=== PATIENT | female | born 1955 | race Caucasian/White ===

== ENCOUNTER 2022-03-18 15:46 | Outpatient (CLI) | payer MEDICARE, OTHER, SELFPAY ==
--- OUTSIDE RECORDS SUMMARY | 2022-03-18 15:50 | XMS_ITS | Encounter Summary ---
:1955 Author Organization [facility] Address [address] [place] [address]. [place] [address] Care Team Providers Name Role Phone Cleve Mrogan MD Unavailable Reason for Visit Reason Comments [facility] Encounter Details Date Type Department Care Team Description 10/29/2005 Office Visit [facility] in [facility] w [facility] [address] [place] [phone] Social History Tobacco Use Types Packs/Day Years Used Date Never Assessed Sex Assigned at Date Recorded Not on file documented as of this encounter Plan of Treatment Not on filedocumented as of this encounter Visit Diagnoses Not on filedocumented in this encounter Care Teams Valve Inspector Relationship Specialty Start Date End Date Cleve Morgan MD PCP - Ophthalmology 10/29/05 [facility] [address] [place] [address] documented as of this encounter
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
--- OUTSIDE RECORDS SUMMARY | 2022-03-18 15:50 | XMS_ITS | Encounter Summary ---
:1955 Author Organization [place] Address [address] [facility] [place] [address] Care Team Providers Name Role Phone Frw, None Unavailable Unavailable Lilian Baez MD Primary Care Provider Reason for Visit Auth/Cert Specialty Diagnoses / Procedures Referred By Contact Refer red To Contact Surgery Diagnoses Prolapse of vaginal vault after hysterectomy Rectocele Stress incontinence, female Prolapse of vaginal vault after hysterectomy [N99.3] Rectocele [N81.6] Stress incontinence, female [N39.3] Rh Periop Services Procedures HC REPR VAGINAL PROLAPSE,SACROSP LIG HC SLING OPERATION FOR STRESS INCONTINENCE C LAPAROSCOPY, SURGICAL; SLING OPERATION FOR STRESS INCONTINENCE HC CYSTOURETHROSCOPY C LAPAROSCOPY, SURGICAL, COLPOPEXY [address] C COLPOPEXY, VAGINAL; INTRA- PERITONEAL APPROACH (UTEROSACRAL, LEVATOR MYORRHAPHY) Sacrospinus ligament alignment, posterior repair, perineorrhaphy (General or Spinal) possible midurethral sling, cystoscopy (General or Spinal) [place] [address] Phone: Fax: Referral ID Status Reason Start Date Expiration Date Visits Requ ested Visits Authorized [id number] 1 1 Encounter Details Date Type Department Care Team Description 08/25/2019 Surgery [facility] Guillermina Wagner MD Sacrospinus ligament [facility] susupension posterior [address] [facility] repair, [place] [address] [facility] perineorrhaphy, [address] [place] [address] cystoscopy [phone] (Wo rk) Surgery Details Date/Time Status Location OR Service Patient Case Class Case Tr auma Class Type Case? 08/25/19 11:15 Posted [facility] OR OR 09 Gynecology Same Day Outpatient in AM Surgery Bed Panel 1 Procedure LRB Anes Op Region Wound Class Commen ts Sacrospinus ligament susupension N/A General Vagina II- Clean Contaminated posterior repair, perineorrhaphy, cystoscopy Surgeon Surgeon Role Service Panel Guillermina Wagner MD Primary Gynecology 1 Special Needs Cady Cristian to [id number] 1in, 262 lbs per H&P documented in this encounter Social History Tobacco Use Types Packs/Day Years Used Date Former Smoker Smokeless Tobacco: Never Used Comments: quit 30 years ago Alcohol Use Standard Drinks/Week Comments Yes 0 (1 standard drink = 0.6 oz pure alcoho l) 1 glass wine 2/month Alcohol Habits Answer Date Recorded How often do you have a drink containing alcohol? Not asked How many drinks containing alcohol do you have on Not asked a typical day when you are drinking? How often do you have six or more drinks on one Not asked occasion? Comment: 1 glass wine 2/month 08/18/2019 Sex Assigned at Date Recorded Not on file documented as of this encounter Last Filed Vital Signs Vital Sign Reading Time Taken Comments Blood Pressure 125/66 08/25/2019 10:33 AM [facility] Pulse - - Temperature 36.7 ??C (98 ??F) 08/25/2019 10:17 AM [facility] Respiratory Rate 18 08/25/2019 10:17 AM [facility] Oxygen Saturation 99% 08/25/2019 10:17 AM [facility] Inhaled Oxygen Concentration - - Weight 121.6 kg (268 lb) 08/25/2019 10:17 AM [facility] Height 154.9 cm (5' 1) 08/25/2019 10:17 AM [facility] Body Mass Index 50.64 08/25/2019 10:17 AM [facility] documented in this encounter Medications at Time of Discharge Medication Sig Dispensed Refills Start Date End Date acetaminophen (TYLENOL) Take 2 tablets (650 30 tablet 0 11/2019 325 MG tabletIndications: mg) by mouth every 6 Rectocele hours as needed for mild pain acetaminophen (TYLENOL) Take 2 tablets (650 100 tablet 0 10/2019 325 MG tabletIndications: mg) by mouth every 6 Rectocele, Enterocele, hours as needed Vaginal vault prolapse (pain) acetaminophen (TYLENOL) Take 325-650 mg by 0 325 MG tablet mouth every 6 hours as needed for mild pain albuterol (PROAIR Inhale 1-2 puffs into 0 HFA/PROVENTIL the lungs every 4 HFA/VENTOLIN HFA) 108 (90 hours as needed for Base) MCG/ACT inhaler shortness of breath / dyspnea or wheezing albuterol (PROVENTIL) Take 2.5 mg by 0 (2.5 MG/3ML) 0.083% neb nebulization every 6 solution hours as needed for shortness of breath / dyspnea or wheezing alendronate (FOSAMAX) 70 Take 70 mg by mouth 0 MG tablet every 7 days BABY ASPIRIN PO Take 81 mg by mouth 0 daily cholecalciferol (VITAMIN Take 5,000 Units by 0 D3) 5000 units (125 mcg) mouth daily capsule docusate sodium (COLACE) Take 1 capsule (100 60 capsule 0 100 MG mg) by mouth 2 times capsuleIndications: daily STOP FOR LOOSE Rectocele STOOLS furosemide (LASIX) 80 MG Take 40 mg by mouth 0 tablet daily ibuprofen (ADVIL/MOTRIN) Take 1 tablet (600 30 tablet 0 11/2019 600 MG tabletIndications: mg) by mouth every 6 Rectocele hours as needed for moderate pain ibuprofen (ADVIL/MOTRIN) Take 1 tablet (600 30 tablet 0 10/2019 600 MG tabletIndications: mg) by mouth every 6 Rectocele, Enterocele, hours as needed for Vaginal vault prolapse pain (mild) metoprolol succinate ER Take 100 mg by mouth 0 (TOPROL-XL) 100 MG 24 hr daily tablet Multiple Vitamins-Calcium Take 1 tablet by 0 (ONE-A-DAY WOMENS PO) mouth daily oxyCODONE (ROXICODONE) 5 Take 1 tablet (5 mg) 7 tablet 0 0 08/26/2019 MG tabletIndications: by mouth every 3 Rectocele hours as needed for moderate to severe pain oxyCODONE (ROXICODONE) 5 Take 1-2 tablets 12 tablet 0 08/24 MG tabletIndications: (5-10 mg) by mouth Rectocele, Enterocele, every 3 hours as Vaginal vault prolapse needed for pain (Moderate to Severe) pantoprazole (PROTONIX) Take 40 mg by mouth 0 20 MG EC tablet daily potassium chloride ER Take 40 mEq by mouth 0 (KLOR-CON M) 20 MEQ CR daily tablet valACYclovir (VALTREX) Take 1,000 mg by 0 1000 mg tablet mouth 2 times daily as needed documented as of this encounter Progress Notes Guillermina Wagner MD - 08/26/2019 7:44 AM CST Urogynecology Postoperative Note Alicia Mensah 1955 08/25/2019 [id number] Alicia Mensah is a 63 year old female who is now on POD#1 s/p Procedures Procedure(s): Sacrospinus ligament susupension posterior repair, closure of enterocele sac, perineorrhaphy, cystoscopy Subjective: Overnight there were no events She is tolerating a full diet She has voided without the george catheter She has ambulated around the hallways without difficulty, no dizziness or lightheadness She feels her pain is controlled with oral medications, no narcotics needed She feels ready for discharge home Objective Her urine output overnight is adequate Her vital signs are stable Temp: [96.7 ??F (35.9 ??C)-98 ??F (36.7 ??C)] 97.2 ??F (36.2 ??C) Pulse: [72-88] 72 Heart Rate: [63-83] 76 Resp: [11-26] 20 BP: (104-150)/(53-77) 125/55 SpO2: [90 %-99 %] 92 % BP 125/55 (BP Location: Left arm) Pulse 72 Temp 97.2 ??F (36.2 ??C) (Oral) Resp 20 Ht 1.549 m (5' 1) Wt 121.6 kg (268 lb) SpO2 92% BMI 50.64 kg/m?? Alicia Mensah is well appearing sitting up in bed. CV: extremities are warm and well perfused Resp: no respiratory distress, no wheezing, no increased work of breathing Abdomen: soft, NTND Extremities: moving all extremities equally, negative homans sign, no edema in lower extremities Pad with appropriate blood, no active bleeding from the perineum Lab Results Component Value Date HGB 13.0 08/26/2019 No results found for this or any previous visit. Intake/Output Summary (Last 24 hours) at 08/26/2019 0744 Last data filed at 08/26/2019 0737 Gross per 24 hour Intake 1300 ml Output 1150 ml Net 150 ml Assessment and Plan Alicia Mensah is a 63 year old F who is now on POD#1 s/p Procedure(s): Sacrospinus ligament susupension posterior repair, closure of enterocele sac, perineorrhaphy, cystoscopy She is recovering from surgery appropriately Her pain is controlled with oral medications She is able to tolerate diet without nausea or vomiting She has ambulated without difficulty Anticipate discharge home later today, encourage continued ambulationReviewed discharge instructions Follow up in 2 weeks in clinic for postoperative visit All questions answered Guillermina Wagner MD [facility]/ [facility] Cell: [phone] [facility] Geni Kirkland RN - 08/26/2019 5:48 AM CST George and vaginal packing removed. Patient tolerated it well. Patient refused capno at this time. O297% RA. [facility] Nury Montanez RN - 08/25/2019 7:55 PM CST PRIMARY DIAGNOSIS: Repair of prolapse OUTPATIENT/OBSERVATION GOALS TO BE MET BEFORE DISCHARGE: 1. Stable vital signs Yes on 1L 2. Tolerating diet:Yes- no nausea. Dyer ordered 3. Pain controlled with oral pain medications:?? yes scheduled tylenol 4. Positive bowel sounds:?? Yes 5. Voiding without difficulty:?? No- george in 6. Able to ambulate:?? yes walked doyle prior shift 7. Provider specific discharge goals met:?? No- cath and packing in [facility] Krysten Persaud RN - 08/25/2019 4:30 PM CST PRIMARY DIAGNOSIS: Repair of prolapse OUTPATIENT/OBSERVATION GOALS TO BE MET BEFORE DISCHARGE: 1. Stable vital signs Yes on 1L 2. Tolerating diet:Yes- no nausea. Dyer ordered 3. Pain controlled with oral pain medications: No pain- hasn't gotten anything for pain 4. Positive bowel sounds: Yes 5. Voiding without difficulty: No- george in 6. Able to ambulate: No 7. Provider specific discharge goals met: No- cath and packing in Senior Writer Nurse Safe discharge environment identified: Yes Barriers to discharge: Yes Entered by: Krysten Persaud 08/25/2019 5:00 PM Please review provider order for any additional goals. Nurse to notify provider when observation goals have been met and patient is ready for discharge. Denies pain and nausea. Dyer ordered for dinner. On 2L/capno. and daughter at bedside. George in with good urine output. [facility] Guillermina Wagner MD - 08/25/2019 2:27 PM CST Plase contact me with any questions regarding patient care Guillermina Wagner MD [phone] [facility] documented in this encounter H&P Notes Guillermina Wagner MD - 08/25/2019 11:29 AM CST H&P reviewed, no changes since history and physical was complete. Dr. Guillermina Wagner [facility] Female Pelvic Medicine and Reconstructive Surgery/Urogynecology [facility] Source Note - Sarahi, Provider - 08/22/2019 12:39 PM [facility] documented in this encounter Miscellaneous Notes Plan of Care - Joy Dockery RN - 08/26/2019 8:44 AM CST Patient's After Visit Summary was reviewed with patient and/or spouse and daughter. Patient verbalized understanding of After Visit Summary, recommended follow up and was given an opportunity to ask questions. Discharge medications sent home with patient/family: YES, paper scripts for ibuprofen and oxy. Discharged with spouse and daughter. OBSERVATION patient END time: 8:40am [facility] Plan of Care - Geni Kirkland RN - 08/26/2019 4:00 AM CST PRIMARY DIAGNOSIS: REPAIR OF PROLAPSE OUTPATIENT/OBSERVATION GOALS TO BE MET BEFORE DISCHARGE: 1. Stable vital signs Yes 2. Tolerating diet:Yes 3. Pain controlled with oral pain medications: Yes 4. Positive bowel sounds: Yes 5. Voiding without difficulty: George in place 6. Able to ambulate: Yes 7. Provider specific discharge goals met: No Patient alert and oriented x4. Vitals are Temp: 97.2 ??F (36.2 ??C) Temp src: Oral BP: 113/66 Pulse:72 Heart Rate: 74 Resp: 21 SpO2: 98 % 1 LPM NC. Denies pain. Continuing with scheduled Tylenol. Small amounts of vaginal bleeding. Tolerating regular diet. IV saline locked. Capno WNL. Plan for george and packing removal this morning. Senior Writer Nurse Safe discharge environment identified: Yes Barriers to discharge: Yes Entered by: Geni Kirkland 08/26/2019 Please review provider order for any additional goals. Nurse to notify provider when observation goals have been met and patient is ready for discharge. [facility] Dilma of [place] - Geni Kirkland RN - 08/26/2019 12:00 AM CST PRIMARY DIAGNOSIS: REPAIR OF PROLAPSE OUTPATIENT/OBSERVATION GOALS TO BE MET BEFORE DISCHARGE: 1. Stable vital signs Yes 2. Tolerating diet:Yes 3. Pain controlled with oral pain medications: Yes 4. Positive bowel sounds: Yes 5. Voiding without difficulty: George in place 6. Able to ambulate: Yes 7. Provider specific discharge goals met: No Patient alert and oriented x4. Vitals are Temp: 97.3 ??F (36.3 ??C) Temp src: Oral BP: 104/62 Pulse:72 Heart Rate: 76 Resp: 17 SpO2: 94 % 1 LPM NC. Denies pain. Small amounts of vaginal bleeding. Tolerating regular diet. IV saline locked. Capno WNL. Plan for george and packing removal this morning. Senior Writer Nurse Safe discharge environment identified: Yes Barriers to discharge: Yes Entered by: Geni Kirkland 08/26/2019 Please review provider order for any additional goals. Nurse to notify provider when observation goals have been met and patient is ready for discharge. [facility] Pharmacy-Admission Medication History - August Landa [facility] - 08/25/2019 9:45 PM CST Medication history and patient interview completed by pre-admitting RN. Reviewed by pharmacist, including [employer] dispense records and chart review. August Landa, Pharm.D. Status Changed by Time of change Nurse Complete Chelly Krishnamurthy RN [facility] Aug 18, 2019 ??5:23 PM Prior to Admission medications Medication Sig Last Dose Taking? Auth Provider acetaminophen (TYLENOL) 325 MG tablet Take 2 tablets (650 mg) by mouth every 6 hours as needed (pain) Yes KristyGuillermina wynn MD acetaminophen (TYLENOL) 325 MG tablet Take 325-650 mg by mouth every 6 hours as needed for mild painYes Reported, Patient albuterol (PROAIR HFA/PROVENTIL HFA/VENTOLIN HFA) 108 (90 Base) MCG/ACT inhaler Inhale 1-2 puffs into the lungs every 4 hours as needed for shortness of breath / dyspnea or wheezing Yes Reported, Patient albuterol (PROVENTIL) (2.5 MG/3ML) 0.083% neb solution Take 2.5 mg by nebulization every 6 hours as needed for shortness of breath / dyspnea or wheezing Yes Reported, Patient alendronate (FOSAMAX) 70 MG tablet Take 70 mg by mouth every 7 days Yes Reported, Patient BABY ASPIRIN PO Take 81 mg by mouth daily Yes Reported, Patient cholecalciferol (VITAMIN D3) 5000 units (125 mcg) capsule Take 5,000 Units by mouth daily Yes Reported, Patient furosemide (LASIX) 80 MG tablet Take 40 mg by mouth daily Yes Reported, Patient ibuprofen (ADVIL/MOTRIN) 600 MG tablet Take 1 tablet (600 mg) by mouth every 6 hours as needed for pain (mild) Yes Guillermina Wagner MD metoprolol succinate ER (TOPROL-XL) 100 MG 24 hr tablet Take 100 mg by mouth daily Yes Reported, Patient Multiple Vitamins-Calcium (ONE-A-DAY WOMENS PO) Take 1 tablet by mouth daily Yes Reported, Patient oxyCODONE (ROXICODONE) 5 MG tablet Take 1-2 tablets (5-10 mg) by mouth every 3 hours as needed for pain (Moderate to Severe) Yes Guillermina Wagner MD pantoprazole (PROTONIX) 20 MG EC tablet Take 40 mg by mouth daily Yes Reported, Patient potassium chloride ER (KLOR-CON M) 20 MEQ CR tablet Take 40 mEq by mouth daily Yes Reported, Patient valACYclovir (VALTREX) 1000 mg tablet Take 1,000 mg by mouth 2 times daily as needed Yes Reported, Patient [facility] Plan of Care - Krsyten Persaud RN - 08/25/2019 4:25 PM CST ROOM # 231 Living Situation (if not independent, order SW consult): Ind with 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 Patient has been oriented to the observation room, bathroom and call light is in place. Discussed discharge goals and expectations with patient/family. [facility] Op Note - Guillermina Wagner MD - 08/25/2019 2:30 PM CST Operative Note Name: Alicia Mensah Location: [facility] Procedure Date: 08/25/19 PCP: Lilian Baez Procedure(s): Sacrospinus ligament susupension posterior repair, perineorrhaphy, cystoscopy Pre-Procedure Diagnosis: (N81.6) Rectocele (primary encounter diagnosis) (N81.9) Vaginal vault prolapse Overactive bladder Post-Procedure Diagnosis: (K46.9) Enterocele (N81.6) Rectocele (primary encounter diagnosis) (N81.9) Vaginal vault prolapse Overactive bladder Surgeon(s): Guillermina Wagner MD Anesthesia Type: General Findings: Exam under anesthesia confirmed stage III rectocele, likely apical enterocele. After opening of the vaginal epithelium apical enterocele was encountered, the peritoneal sac was not opened. After apical suspension, closure of the enterocele sac, and posterior colporrhaphy, well supported vagina with no residual prolapse On cystoscopy brisk bilaterally flecks of urine for the bilateral ureters, the bladder had increasedtrabeculations at low volume but was otherwise without mass, abnormality, foreign body, diverticula or any other abnormality. The urethra was normal. Rectal exam the end of the procedure confirmed no injury to the bowel, no residual rectocele Complications: none Specimens: * No specimens in log * Lines, Drains, Airways: 16 [place] George Implants: * No implants in log * Estimated Blood Loss: 100 cc Indications: Alicia is a 63-year-old female with Symptomatic stageIII rectoceleand 2 vaginal vault prolapse. After discussion of risks, benefits, alternatives she elected for surgical management with the procedureas listed above. Operative Report: Patient was seen in the preoperative setting, consent was verified. She was taken the operating roomand placed in dorsal position, general anesthesia was obtained endotracheal tube. She was placed in dorsal lithotomy position. Exam under anesthesia confirmed findings as above. IV and advice were given and SCDs were applied. She was prepped and draped in the usual sterile fashion. A George catheter was inserted the beginning of the procedure. Procedure started with identification of the areas of planned incision. Allis clamps were placed along a diamondconfiguration starting at the perineum and extending approximately 2 cm into the vaginal epithelium and laterally to help narrow the opening of the genital hiatus to approximately 3 cm. Thisarea was injected with 1%lidocaine with epinephrinein the epithelium was removed from this site using the surgical knife. Bovie cautery was used as needed to obtain hemostasis A midline incision was then carried up along the posterior vagina to the apex of the prolapse which was identified, this was for approximately 6-7 cm. The underlying fibromuscular layer was then dissected off of the vaginal epithelium using Metzenbaum scissors. At the apex of the vagina there was animal fibromuscular tissue was consistent with a the peritoneum and an enterocele sac. Care was taken to avoid entry into the enterocele sac. This was performed bilaterally. After sufficient mobilization attention was then turned to the right sacrospinous dissection. Using blunt dissection perirectal space was entered and the sacrospinous ligament was easily palpated. Using the Capio suturing device 2 sutures of 0-monodek were placed into the midportion of the ligament with care to avoid going at the high end of the ligament which may cause injury to the neurovascular bundle pudendal, the sutures were placed approximately 2 cm medial to ischial spine. Minimal bleeding was noted. At this point enterocele sac was closed using a pursing stricture with care to avoid going too deep into the peritoneum and ensuring the needle was visible through the peritoneal layer at all times.. This was done in 2 layers with an inner pursestring and outer pursestring the sufficiently reduce the enterocele sac. 2-0 PDS was then used to plicate the fibromuscular layer in the midline along the length of the posterior vagina. Once the bulge was sufficiently reduced the vaginal epithelium was minimally trimmed and the sacrospinous sutures were affixed to the apex of the vaginal dissection and the underside edge of the vaginal epithelium. The vaginal epithelium was then started to be closed with a 2-0 Vicryl running suture starting at the apex, went to a mcc down the length of the vagina the sacral spinous ligament sutures were then tied down using a fernando suture technique. This resulted in excellent suspension of the vaginal apex. At this point transverse perineal muscles were plicated in the midline using interrupted suture of 0 Vicryl. The surgical site was then irrigated , hemostasis was noted The vaginal epithelium was then continued to be closed in a running fashion will transition to the perineum which was plicated in the fibromuscular layer and then the epithelium was closed the subcuticular suture running continuous with a vaginal suture. The surgical site was then irrigated and all irrigants removed. At this point cystoscopy was performed given her history of overactive bladderwith findings as above. The George catheter was replaced, the vaginal was packed with lubricated packing. Sponge, instrument, needle counts were correct at the end of the procedure. The patient tolerated the procedure without complications and was taken to the PACU in awake and stable condition I was present and scrubbed for the procedure in entirety Guillermina Camryn Andreina Kristy [facility] Brief Op Note - Guillermina Wagner MD - 08/25/2019 2:26 PM [facility] Brief Operative Note Pre-operative diagnosis: Prolapse of vaginal vault after hysterectomy [N99.3] Rectocele [N81.6] Stress incontinence, female [N39.3] Post-operative diagnosis Same as pre-operative diagnosis and Enterocele Procedure: Procedure(s): Sacrospinus ligament susupension posterior repair, perineorrhaphy, cystoscopy Surgeon: Surgeon(s) and Role: * Guillermina Wagner MD - Primary Anesthesia: General Estimated blood loss:100 ml Drains: George catheter and vagina packing Specimens: * No specimens in log * Findings: EUA confirmed stage III rectocele. After opening epithlium enterocele noted at apex of theproalpse, after susension adn repairs well supportd vagina no additional prolapse, the rectal exam confrimed no injury. Complications: None. Implants: * No implants in log * Dr. Guillermina Wagner [facility] Female Pelvic Medicine and Reconstructive Surgery/Urogynecology [facility] documented in this encounter Plan of Treatment Not on filedocumented as of this encounter Procedures Procedure Name Priority Date/Time Associated Comments Diagnosis HEMOGLOBIN Routine 08/26/2019 6:57 AM Rectocele Results f or this [facility] procedure are i n the results section. COLPOPEXY, 08/25/2019 11:36 AM Prolapse of vaginal SACROSPINOUS, WITH [facility] vault after CYSTOSCOPY hysterectomy Rectocele Stress incontinence, female Special Needs Cady Foster to assist5 ft 1in, 262 lbs per H&P LAB RESULT - HIM SCAN 08/17/2019 12:00 AM [facility] LAB RESULT - HIM SCAN 08/17/2019 12:00 AM [facility] EKG CARDIAC - HIM SCAN 08/17/2019 12:00 AM [facility] documented in this encounter Results Hemoglobin (08/26/2019 6:57 AM [facility]) P athologist Signature Hemoglobin 13.0 11.7 - 15.7 08/26/2019 [facility] g/dL 7:30 AM [facility] HOSPITAL Specimen Anatomical Collection Method Collection Time Receive d Time (Source) Location / / Volume Laterality Blood specimen 08/26/2019 6:57 AM 020 6:58 (specimen) [facility] AM [facility] Guillermina Wagner MD LAB - BLOOD ORDERABLES Performing Organization Address City/State/ZIP Code Phon e Number M [facility] [address], [place] [address] [facility] [address], [place] [address] [facility] [phone] LAB RESULT - HIM SCAN (08/17/2019 12:00 AM [facility]) Specimen (Source) Anatomical Location Collection Method / Collectio n Time Received Time / Laterality Volume 08/17/2019 Narrative This result has an attachment that is no t available. Provider Outside NON-BEAKER LAB TESTING LAB RESULT - HIM SCAN (08/17/2019 12:00 AM DIRECTOR PHARMACY SERVICES) Specimen (Source) Anatomical Location Collection Method / Collectio n Time Received Time / Laterality Volume 08/17/2019 Narrative This result has an attachment that is no t available. Provider Outside NON-BEAKER LAB TESTING EKG CARDIAC - HIM SCAN (08/17/2019 12:00 AM DIRECTOR PHARMACY SERVICES) Specimen (Source) Anatomical Location Collection Method / Collectio n Time Received Time / Laterality Volume 08/17/2019 Narrative This result has an attachment that is no t available. Provider Outside ECG ORDERABLES documented in this encounter Visit Diagnoses Diagnosis Rectocele - Primary Enterocele Hernia of unspecified site of abdominal cavity without mention of obstruction or gangrene Vaginal vault prolapse Unspecified prolapse of vaginal sharma Prolapse of vaginal vault after hysterec spike Rectocele Stress incontinence, female Female stress incontinence documented in this encounter Admitting Diagnoses Diagnosis Rectocele documented in this encounter Administered Medications Inactive Administered Medications - up to 3 most recent administrations Medication Order MAR Action Action Date Dose Rate Site acetaminophen (TYLENOL) tablet 650 Given 08/26/2019 4:01 AM DIRECTOR PHARMACY SERVICES 650 mg mg 650 mg, Oral, EVERY 6 HOURS, First dose on Zoraida 08/25/19 at 1615, Maximum acetaminophen dose from all sources = 75 mg/kg/day not to exceed 4 grams/day. Given 08/25/2019 9:46 PM DIRECTOR PHARMAC[facility] SERVICES 650 mg Given 08/25/2019 5:44 PM DIRECTOR PHARMAC[facility] SERVICES 650 mg docusate sodium (COLACE) capsule 100 mg Given 08/26/2019 7:46 AM DIRECTOR PHARMACY SERVICES 100 mg 100 mg, Oral, 2 TIMES DAILY, First dose on Thu08/25/19 at 2000, Hold for loose stools. furosemide (LASIX) tablet 40 mg Given 08/25/2019 6:11 PM DIRECTOR PHARMAC[facility] SERVICES 40 mg 40 mg, Oral, DAILY, First dose on Zoraida 08/25/19 at 1803 lidocaine-EPINEPHrine 1 Given 08/25/2019 1:47 PM 20 mLs Operative %-[id number] injection [facility] Site/Surgical S ite PRN, Starting on Thu08/25/19 at 1347, Intra-procedure metoprolol succinate ER (TOPROL-XL) 24 hr Given 08/26/2019 7:46 AM DIRECTOR PHARMACY SERVICES 100 mg tablet 100 mg 100 mg, Oral, DAILY, First dose on Thu08/26/19 at 0800, DO NOT CRUSH. Tablet may be split in half along score line. pantoprazole (PROTONIX) EC tablet 40 mg Given 08/26/2019 7:46 AM DIRECTOR PHARMACY SERVICES 40 mg 40 mg, Oral, DAILY, First dose on Thu08/25/19 at 1800, DO NOT CRUSH. potassium chloride ER (KLOR-CON M) CR tablet Given 11/2019 7:45 AM DIRECTOR PHARMACY SERVICES 40 mEq 40 mEq 40 mEq, Oral, DAILY, First dose on Thu08/26/19 at 0800, DO NOT CRUSH sodium chloride (PF) 0.9% PF flush 3 mL Given 08/25/2019 11:28 PM DIRECTOR PHARMACY SERVICES 3 mLs 3 mL, Intracatheter, EVERY 8 HOURS, First dose on Zoraida 08/25/19 at 1556, And Q1H PRN, to lock peripheral IV dormant line., Post-procedure Given 08/25/2019 5:44 PM DIRECTOR PHARMACY SERVICES 3 mLs sodium chloride 0.9% Given 08/25/2019 1:50 PM 400 mLs Operative Site/Surgical (bottle) irrigation [facility] Site PRN, Starting on Thu08/25/19 at 1350, Intra-procedure sterile water irrigation Given 08/25/2019 1:54 PM 300 mLs Operative Site/Surgical (bag) DIRECTOR PHARMAC[facility] SERVICES Site PRN, Intra-procedure, Starting on Zoraida 08/25/19 at 1354, Until Zoraida 08/25/19 at 1555 documented in this encounter Active and Recently Administered Medications Times are shown in DIRECTOR PHARMACY SERVICES. Scheduled Medication Order 08/24/2019 08/25/2019 08/26/2019 acetaminophen (TYLENOL) tablet 650 mg 17 44 (Given - Provider: Krysten Persaud, RN)2146 (Given - Provider: Nury Montanez RN) 0401 (Given - Provider: Geni Kirkland, JERRY)1015 (Canceled Entry - Provider: Orders Generic Provider - Comment: Automatically canceled at discontinue of medication order) 650 mg, Oral, EVERY 6 HOURS, First dose on Zoraida 08/25/19 at 1615, Maximum acetaminophen dose from all sources = 75 mg/kg/day not to exceed 4 grams/day. ceFAZolin (ANCEF) intermittent infusion 3 g (pre-mix) (COMPL ETED) 1205 (Given - Provider: Lillie Torres, DUMP TRUCK DRIVER OFF [employer] NETWORK CABLER) Routine, 3 g, Intravenous, PRE-OP/PRE-KS OCEDURE, Starting Zoraida 08/25/19 at 1052, For 1 dose, Use 3 gram dose pre-op (Patient weight > or = 120 kg). Discontinue the 1 or 2 gram pre-procedure dose, Indica tions: Perioperative Pharmacoprophylaxis, Pre-procedure docusate sodium (COLACE) capsule 100 mg 194 (Not Given - Provider: Nury Montanez RN - Reason: Patient/family refused) 0746 (Given - Provider: Joy Dockeyr RN) 100 mg, Oral, 2 TIMES DAILY, First dose on Zoraida 08/25/19 at 2000, Hold for loose stools. furosemide (LASIX) tablet 40 mg 181 (Given - Pr ovider: Krysten Persaud RN) 0746 (Not Given - Provider: Joy Dockery RN - Reason: Patient/family refused - Comment: pt refused, not given) 40 mg, Oral, DAILY, First dose on Zoraida 08/25/19 at 1803 metoprolol succinate ER (TOPROL-XL) 24 hr tablet 100 mg 0746 (Given - Provider: Joy Dockery RN) 100 mg, Oral, DAILY, First dose on Thu at 0800, DO NOT CRUSH. Tablet may be split in half along score line. pantoprazole (PROTONIX) EC tablet 40 mg 174 (Not Given - Provider: Krysten Persaud RN - Reason: Taken prior to admission) 0746 (Given - Provider: Joy Dockery RN) 40 mg, Oral, DAILY, First dose on Zoraida 08/25/19 at 1800, DO NOT CRU SH. potassium chloride ER (KLOR-CON M) CR tablet 40 mEq 0745 (Given - Provider: oJy Dockery, RN) 40 mEq, Oral, DAILY, First dose on Thu08/26/19 at 0800, DO NOT CR [facility] sodium chloride (PF) 0.9% PF flush 3 mL 174 (Given - Provider: Krysten Persaud RN)2328 (Given - Provider: Geni Kirkland RN) 0738 (Not Given - Provider: Joy Dockery RN - Reason: Other - Comment: pt discharging) 3 mL, Intracatheter, EVERY 8 HOURS, Firs t dose on Zoraida 08/25/19 at 1556, And Q1H PRN, to lock peripheral IV dormant line., Post-procedure Continuous Medication Order 08/24/2019 08/25/2019 08/26/2019 lactated ringers infusion (CANCELED) 115 0 (New Bag - Provider: Lillie Torres APRN CRNA)1349 (New Bag - Provider: Lillie Torres APRN CRNA)1418 (Anesthesia Volume Adjustment - Provider: Lillie Torres APRN CRNA) at 25 mL/hr, Intravenous, CONTINUOUS, IF patient NOT on dialysis., Pre- procedure, Starting Zoraida 08/25/19 at 1030, Until Zoraida 08/25/19 at 1422 lactated ringers infusion 1741 (Stopped - Provider: Krysten Persaud RN - Comment: eating and drinking fine) at 75 mL/hr, Intravenous, CONTINUOUS, Po st-procedure, Starting Zoraida 08/25/19 at 1556, Until Thu08/26/19 at 1047 PRN Medication Order 08/24/2019 08/25/2019 08/26/2019 albuterol (PROAIR HFA/PROVENTIL HFA/VENT JOSETTE HFA) 108 (90 Base) MCG/ACT inhaler 1-2 puff 1-2 puff, Inhalation, EVERY 4 HOURS PRN, shortness of breath / dyspnea, wheezing, Starting Zoraida 3 at 1555 albuterol (PROVENTIL) neb solution 2.5 mg 2.5 mg, Nebulization, EVERY 6 HOURS PRN, shortness of breath / dyspnea, wheezing, Starting Zoraida 3 at 1555 lidocaine (LMX4) cream Topical, EVERY 1 HOUR PRN, pain, with VA D insertion or accessing implanted port., Starting Zoraida 3 at 1555, Do NOT give if patient has a history of allergy to any local anesthetic or any mesha prod uct. Apply at least 30 minutes prior to VAD insertion or port access. In divided doses as needed for size of site for insertion with MAX Dose: 2.5 g (?? of 5 g tube), Post-procedure lidocaine 1 % 0.1-1 mL 0.1-1 mL, Other, EVERY 1 HOUR PRN, mild pain with VAD insertion., Starting Zoraida 08/25/19 at 1555, Do NOT give if patient has a history of allergy to any local anesthetic or any mesha product. MAX dose 1 mL subcutaneous OR intradermal in divide d doses as needed for VAD insertion., Post-procedure lidocaine-EPINEPHrine 1 %-1:[id number] injection (CANCELED) 1347 (Given - Provider: Guillermina Wagner MD) PRN, Starting Zoraida 08/25/19 at 1347, Intra-procedure naloxone (NARCAN) injection 0.1-0.4 mg 0.1-0.4 mg, Intravenous, EVERY 2 MIN PRN , opioid reversal, Starting Zoraida 3 at 1555, For respiratory rate LESS than or EQUAL to 8. Partial reversal dose: 0.1 mg titrated q 2 minutes for Analgesia Kevin e Effects Monitoring Sedation Level of 3 (frequently drowsy, arousable, drifts to sleep during conversation).Full reversal dose: 0.4 mg bolus for Analgesia Side Effects Monitoring Sedation Level of 4 (s omnolent, minimal or no response to stim ulation). For ordered IV doses 0.1-2mg give IVP. Give each 0.4mg over 15 seconds in emergency situations. For non- emergent situations further dilute in 9mL of NS to facilitate titration of response., Post-procedure oxyCODONE (ROXICODONE) tablet 5 mg 5 mg, Oral, EVERY 3 HOURS PRN, moderate to severe pain, Starting Zoraida 08/25/19 at 1555 sodium chloride (PF) 0.9% PF flush 3 mL 3 mL, Intracatheter, EVERY 1 MIN PRN, li ne flush, for peripheral IV flush post IV meds, Starting Zoraida 08/25/19 at 1555, Post-procedure sodium chloride 0.9% (bottle) irrigation (CANCELED) 1350 (Given - Provider: Guillermina Wagner MD) PRN, Starting Zoraida 08/25/19 at 1350, Intra-procedure sterile water irrigation (bag) (CANCELED) 1354 (Given - Provider: Guillermina Wagner MD) PRN, Intra-procedure, Starting Zoraida 08/25/19 at 1354, Until Zoraida 3 at 1555 documented in this encounter Care Teams Pipe Setter Relationship Specialty Start Date End Date Frw, None PCP - Ophthalmology 07/29/06 Lilian Baez MD PCP - General Family Practice 08/10/19 documented as of this encounter
--- OUTSIDE RECORDS SUMMARY | 2022-03-18 15:50 | XMS_ITS | Clinical Summary ---
:1955 Author Organization [facility] Address [address] [place] [address]. [place] [address] Care Team Providers Name Role Phone Frw, None Unavailable Unavailable Lilian Baez MD Primary Care Provider Allergies Active Allergy Reactions Severity Noted Date Comments No Clinical Screening - See Comments Rash Low 07/24 Paper tape Medications Medication Sig Dispensed Refills Start Date End Date Status pantoprazole Take 40 mg by 0 Act latonia (PROTONIX) 20 MG EC mouth daily tablet furosemide (LASIX) 80 Take 40 mg by 0 Active MG tablet mouth daily potassium chloride ER Take 40 mEq by 0 Active (KLOR-CON M) 20 MEQ mouth daily CR tablet BABY ASPIRIN PO Take 81 mg by 0 Active mouth daily acetaminophen Take 325-650 mg by 0 Active (TYLENOL) 325 MG mouth every 6 tablet hours as needed for mild pain albuterol (PROAIR Inhale 1-2 puffs 0 Active HFA/PROVENTIL into the lungs HFA/VENTOLIN HFA) 108 every 4 hours as (90 Base) MCG/ACT needed for inhaler shortness of breath / dyspnea or wheezing alendronate (FOSAMAX) Take 70 mg by 0 Active 70 MG tablet mouth every 7 days albuterol (PROVENTIL) Take 2.5 mg by 0 Active (2.5 MG/3ML) 0.083% nebulization every neb solution 6 hours as needed for shortness of breath / dyspnea or wheezing cholecalciferol Take 5,000 Units 0 Active (VITAMIN D3) 5000 by mouth daily units (125 mcg) capsule metoprolol succinate Take 100 mg by 0 Active ER (TOPROL-XL) 100 MG mouth daily 24 hr tablet Multiple Take 1 tablet by 0 Act latonia Vitamins-Calcium mouth daily (ONE-A-DAY WOMENS PO) valACYclovir Take 1,000 mg by 0 Active (VALTREX) 1000 mg mouth 2 times tablet daily as needed ibuprofen Take 1 tablet (600 30 tablet 0 08/25/2019 Active (ADVIL/MOTRIN) 600 MG mg) by mouth every tabletIndications: 6 hours as needed Rectocele, for pain (mild) Enterocele, Vaginal vault prolapse acetaminophen Take 2 tablets 100 tablet 0 08/25/2019 Active (TYLENOL) 325 MG (650 mg) by mouth tabletIndications: every 6 hours as Rectocele, needed (pain) Enterocele, Vaginal vault prolapse oxyCODONE Take 1-2 tablets 12 tablet 0 08/25/2019 Ac tive (ROXICODONE) 5 MG (5-10 mg) by mouth tabletIndications: every 3 hours as Rectocele, needed for pain Enterocele, Vaginal (Moderate to vault prolapse Severe) acetaminophen Take 2 tablets 30 tablet 0 08/26/2019 Active (TYLENOL) 325 MG (650 mg) by mouth tabletIndications: every 6 hours as Rectocele needed for mild pain oxyCODONE Take 1 tablet (5 7 tablet 0 08/26/2019 Ac tive (ROXICODONE) 5 MG mg) by mouth every tabletIndications: 3 hours as needed Rectocele for moderate to severe pain docusate sodium Take 1 capsule 60 capsule 0 08/26/2019 Active (COLACE) 100 MG (100 mg) by mouth capsuleIndications: 2 times daily STOP Rectocele FOR LOOSE STOOLS ibuprofen Take 1 tablet (600 30 tablet 0 08/26/2019 Active (ADVIL/MOTRIN) 600 MG mg) by mouth every tabletIndications: 6 hours as needed Rectocele for moderate pain Active Problems Problem Noted Date Rectocele 08/25/2019 Enterocele 08/25/2019 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 Social History Tobacco Use Types Packs/Day Years [...] Assigned at Date Recorded Not on file Last Filed Vital Signs Vital Sign Reading Time Taken Comments Blood Pressure 125/55 08/26/2019 7:42 AM DESK OPERATOR Pulse 72 08/25/2019 7:17 PM DESK OPERATOR Temperature 35.5 ??C (95.9 ??F) 08/26/2019 7:42 AM DESK OPERATOR Respiratory Rate 20 08/26/2019 7:42 AM DESK OPERATOR Oxygen Saturation 92% 08/26/2019 7:42 AM DESK OPERATOR Inhaled Oxygen Concentration - - Weight 121.6 kg (268 lb) 08/25/2019 10:17 AM DESK OPERATOR Height 154.9 cm (5' 1) 08/25/2019 10:17 AM DESK OPERATOR Body Mass Index 50.64 08/25/2019 10:17 AM DESK OPERATOR Plan of Treatment Health Maintenance Due Date Last Done Comments ADVANCE CARE PLANNING 1955 ANNUAL REVIEW OF HM ORDERS 1955 CT COLONOGRAPHY 1955 DEXA 1955 FIT-DNA (Cologuard) 1955 FIT 1955 FLEX SIG 1955 MAMMO SCREENING 1955 COVID-19 Vaccine (#1) 04/10/1954 COLONOSCOPY 10/10/1963 COLORECTAL CANCER SCREENING 10/10/1963 HEPATITIS C SCREENING 10/10/1971 DTAP/TDAP/TD IMMUNIZATION (1 - 1978 Tdap) LIPID 1998 LUNG CANCER SCREENING 10/10/2003 ZOSTER IMMUNIZATION (1 of 2) 10/10/2003 FALL RISK ASSESSMENT 2018 MEDICARE ANNUAL WELLNESS VISIT 2018 Pneumococcal Vaccine: 65+ Years (1 2018 - PCV) PHQ-2 (once per calendar year) 2021 INFLUENZA VACCINE (#1) 2022 HEPATITIS B IMMUNIZATION Aged Out No long er eligible based on patient's age to complete this topic IPV IMMUNIZATION Aged Out No longer eligi ble based on patient's age to complete this topic MENINGITIS IMMUNIZATION Aged Out No longe r eligible based on patient's age to complete this topic Insurance Payer Benefit Plan / Subscriber ID Effective Phone Address T ype Group Dates MEDICARE MEDICARE [id number] 2019-Pre [phone] ATTN Medic are sent [id number] [place] [address] [facility] [id number] 2019-Pre [phone] [address] HMO FULLY INSURED sent [phone] [id number] Guarantor Name Account Type Relation to Date of Phone Billing Patient Address ALICIA OLIVARES Personal/Family [phone] [id number] ([place]) [place] [address] SHER BUSTOS Personal/Family Self [phone] (Home) [place] [address] Alicia Olivares Personal/Family Self 1955 [id number] (Home) [place] [address] Advance Directives For more information, please contact: [phone] Latest Code Status on File Code Status Date Activated Date Inactivated Comments Full Code 08/26/2019 7:37 AM Code status determined by: Discussion with patient/legal dec ision maker Full Code 08/25/2019 3:55 PM 08/26/2019 7:37 AM Code status determined by: Discussion with patient/legal dec ision maker Care Teams Pharmacovigilance Scientist Relationship Specialty Start Date End Date Frw, None PCP - Ophthalmology 07/29/06 Lilian Baez MD PCP - General Family Practice 08/10/19
--- OUTSIDE RECORDS SUMMARY | 2022-03-18 15:50 | XMS_ITS | Encounter Summary ---
:1955 Author Organization [facility] Address [address] [place] [address]. [place] [address] Care Team Providers Name Role Phone Frw, None Unavailable Unavailable Lilian Baez MD Primary Care Provider Encounter Details Date Type Department Care Team Description 08/25/2019 Travel Social History Tobacco Use Types Packs/Day Years [...] on filedocumented in this encounter Care Teams Etl Software Engineer Relationship Specialty Start Date End Date Nikki, Felipe PCP - Ophthalmology 07/29/06 Lilian Baez MD PCP - General Family Practice 08/10/19 documented as of this encounter
--- OUTSIDE RECORDS SUMMARY | 2022-03-18 15:50 | XMS_ITS | Encounter Summary ---
:1955 Author Organization [facility] Address [address] [place] [address]. [place] [address] Care Team Providers Name Role Phone Cleve Morgan MD Unavailable Reason for Visit Reason Onset Date Comments Triage 11/05/2005 [facility] Encounter Details Date Type Department Care Team Description 11/05/2005 Telephone [facility] Xuan Cornelius Tria ge ([facility] in [place] RN randall sanders) Orthopedics [address] [place] [id number] Social History Tobacco Use Types Packs/Day Years Used Date Never Assessed Sex Assigned at Date Recorded Not on file documented as of this encounter Miscellaneous Notes Telephone Encounter - Xuan Cornelius - 11/05/2005 3:02 PM CDT TELEPHONE TRIAGE ENCOUNTER FORM Date: 11/05/2005 PCP: No primary provider on file. Patient Name: Alicia Mensah Gender: female : 1955 Age: [age] year old Time: 2:50 PM Phone Numbers: [phone] (home) Pharmacy: Data Unavailable ASSESSMENT Presenting Problem: worked 12 hours yesterday, at end of day eye got dry and itchy then started to water and saw light circles like right after surgery, went away on thursday Subjective/objective: comes and goes, not dependant on light, no floaters, feels like something is in eye, vision changed last night Onset: worsening Duration: 2 days Associated Sx: No fever noted. denies other problems Problem list reviewed: YES Recent History: Yes - What was it?: in immediate post-operative problem. Recent Illness: No Allergies verified: YES Precipitated by: No Med list reviewed: YES Alleviated by: N/A Immunosuppressed:NO Conclusion / Primary Problem: Vision problems Protocol(s) Consulted: Telephone Triage Protocols for Nurses. Ant, 2002 - eye problems and vision problems and consultedwith Graciela in Ophtho PLAN / INTERVENTION Disposition: patient already has appointment with senior quality assurance specialist in [place] tomorrow and this will be addressed there and she will be sent here if needed Caller verbalizes understanding of disposition? YES Caller agrees to plan? Yes EVALUATION / FOLLOW-UP Patient to be seen sooner if she has vision changes, severe pain or blurred or double vision or floaters or more flashers documented in this encounter Plan of Treatment Not on filedocumented as of this encounter Visit Diagnoses Not on filedocumented in this encounter Care Teams Social Worker Clinical Relationship Specialty Start Date End Date Cleve Morgan MD PCP - Ophthalmology 10/29/05 2 [facility] [address] [place] [address] documented as of this encounter
--- OUTSIDE RECORDS SUMMARY | 2022-03-18 15:50 | XMS_ITS | Encounter Summary ---
:1955 Author Organization [place] Address [address] [facility] [place] [address] Care Team Providers Name Role Phone Frw, [...] CYSTOURETHROSCOPY C LAPAROSCOPY, SURGICAL, COLPOPEXY [address] COLPOPEXY, VAGINAL; INTRA- PERITONEAL APPROACH (UTEROSACRAL, LEVATOR MYORRHAPHY) Sacrospinus ligament alignment, posterior repair, perineorrhaphy (General or Spinal) possible midurethral sling, cystoscopy (General or Spinal) [place] [address] Phone: Fax: Referral ID Status Reason Start Date Expiration Date Visits Requ ested Visits Authorized [id number] 1 1 Encounter Details Date Type Department Care Team Description 08/25/2019 - [facility] Guillermina Wagner MD Rectocele (Primary Dx); 08/26/2019 Encounter [facility]oc jennifer; Dept [facility] Vaginal vault prolapse [address] [place], [place] [address] [place], [place] [phone] [id number] Social History Tobacco Use Types Packs/Day Years [...] Comments Blood Pressure 125/55 08/26/2019 7:42 AM ASSISTANT PROGRAM DIRECTOR Pulse 72 08/25/2019 7:17 PM ASSISTANT PROGRAM DIRECTOR Temperature 35.5 ??C (95.9 ??F) 08/26/2019 7:42 AM ASSISTANT PROGRAM DIRECTOR Respiratory Rate 20 08/26/2019 7:42 AM ASSISTANT PROGRAM DIRECTOR Oxygen Saturation 92% 08/26/2019 7:42 AM ASSISTANT PROGRAM DIRECTOR Inhaled Oxygen Concentration - - Weight 121.6 kg (268 lb) 08/25/2019 10:17 AM ASSISTANT PROGRAM DIRECTOR Height 154.9 cm (5' 1) 08/25/2019 10:17 AM ASSISTANT PROGRAM DIRECTOR Body Mass Index 50.64 08/25/2019 10:17 AM ASSISTANT PROGRAM DIRECTOR documented in this encounter Medications at Time [...] CST Urogynecology Postoperative Note Alicia Mensah 1955 08/25/2019230/023- Alicia Mensah is a 63 year old [...] visit All questions answered Guillermina Wagner MD [facility] Cell: [phone] STANT PROGRAM DIRECTOR Geni Kirkland RN - 08/26/2019 5:48 AM CST George and vaginal packing removed. Patient tolerated it well. Patient refused capno at this time. O297% RA. STANT PROGRAM DIRECTOR Nury Montanez RN - 08/25/2019 7:55 PM CST PRIMARY DIAGNOSIS: Repair of prolapse OUTPATIENT/OBSERVATION GOALS TO BE MET BEFORE DISCHARGE: 1. Stable vital signs Yes on 1L 2. Tolerating diet:Yes- no nausea. [place] ordered 3. Pain controlled with oral pain medications:?? yes scheduled tylenol 4. Positive bowel sounds:?? Yes 5. Voiding without difficulty:?? No- george in 6. Able to ambulate:?? yes walked doyle prior shift 7. Provider specific discharge goals met:?? No- cath and packing in STANT PROGRAM DIRECTOR Krysten Persaud RN - 08/25/2019 4:30 PM CST PRIMARY DIAGNOSIS: Repair of prolapse OUTPATIENT/OBSERVATION GOALS TO BE MET BEFORE DISCHARGE: 1. Stable vital signs Yes on 1L 2. Tolerating diet:Yes- no nausea. [place] ordered 3. Pain controlled with oral pain medications: No pain- hasn't gotten anything for pain 4. Positive bowel sounds: Yes 5. Voiding without difficulty: No- george in 6. Able to ambulate: No 7. Provider specific discharge goals met: No- cath and packing in Senior Information Security Consultant Nurse Safe discharge environment identified: Yes Barriers to discharge: Yes Entered by: Krysten Persaud 08/25/2019 5:00 PM Please review provider order for any additional goals. Nurse to notify provider when observation goals have been met and patient is ready for discharge. Denies pain and nausea. [place] ordered for dinner. On 2L/capno. and daughter at bedside. George in with good urine output. STANT PROGRAM DIRECTOR Guillermina Wagner MD - 08/25/2019 2:27 PM CST Plase contact me with any questions regarding patient care Guillermina Wagner MD [phone] STANT PROGRAM DIRECTOR documented in this encounter H&P Notes Guillermina Wagner MD - 08/25/2019 11:29 AM CST H&P reviewed, no changes since history and physical was complete. Dr. Guillermina Wagner [facility] Female Pelvic Medicine and Reconstructive Surgery/Urogynecology STANT PROGRAM DIRECTOR Source Note - Sarahi, Provider - 08/22/2019 12:39 PM ASSISTANT PROGRAM DIRECTOR documented in this encounter Miscellaneous Notes Plan [...] and daughter. OBSERVATION patient END time: 8:40am STANT PROGRAM DIRECTOR Plan of Care - Geni Kirkland RN [...] george and packing removal this morning. Senior Information Security Consultant Nurse Safe discharge environment identified: Yes Barriers to discharge: Yes Entered by: Geni Kirkland 08/26/2019 Please review provider order for any additional goals. Nurse to notify provider when observation goals have been met and patient is ready for discharge. STANT PROGRAM DIRECTOR Plan of Care - Geni Kirkland RN - 08/26/2019 12:00 [...] george and packing removal this morning. Senior Information Security Consultant Nurse Safe discharge environment identified: Yes Barriers to discharge: Yes Entered by: Geni Kirkland 08/26/2019 Please review provider order for any additional goals. Nurse to notify provider when observation goals have been met and patient is ready for discharge. STANT PROGRAM DIRECTOR Pharmacy-Admission Medication History - Ilenda August Kristy, [facility] - 08/25/2019 9:45 PM CST Medication history and patient interview completed by pre-admitting RN. Reviewed by pharmacist, including [employer] dispense records and chart review. August Landa, Pharm.D. Status Changed by Time of change Nurse Chelly Babcock RN [facility] Aug 18, 2019 ??5:23 PM Prior to Admission medications Medication Sig Last Dose Taking? Auth Provider acetaminophen (TYLENOL) 325 MG tablet Take 2 tablets (650 mg) by mouth every 6 hours as needed (pain) Yes Kristy, Guillermina Hdz MD acetaminophen (TYLENOL) 325 MG tablet Take [...] hours as needed for pain (mild) Yes Kristy, Guillermina Hdz MD metoprolol succinate ER (TOPROL-XL) 100 MG 24 hr tablet Take 100 mg by mouth daily Yes Reported, Patient Multiple Vitamins-Calcium (ONE-A-DAY WOMENS PO) Take 1 tablet by mouth daily Yes Reported, Patient oxyCODONE (ROXICODONE) 5 MG tablet Take 1-2 tablets (5-10 mg) by mouth every 3 hours as needed for pain (Moderate to Severe) Yes Kristy, Guillermina Camryn Andreina, MD pantoprazole (PROTONIX) 20 MG EC tablet Take 40 mg by mouth daily Yes Reported, Patient potassium chloride ER (KLOR-CON M) 20 MEQ CR tablet Take 40 mEq by mouth daily Yes Reported, Patient valACYclovir (VALTREX) 1000 mg tablet Take 1,000 mg by mouth 2 times daily as needed Yes Reported, Patient STANT PROGRAM DIRECTOR Plan of Care - Krysten Persaud RN - 08/25/2019 4:25 PM CST ROOM # 231 Living Situation (if not independent, order SW consult): Ind with Facility name: [employer] counter person: Peter- Activity level at baseline: In Activity level on admit: x1 Patient registered to observation; given Patient Bill of Rights; given the opportunity to ask questions about observation status and their plan of care. Patient has been oriented to the observation room, bathroom and call light is in place. Discussed discharge goals and expectations with patient/family. STANT PROGRAM DIRECTOR Op Note - Guillermina Wagner MD - 08/25/2019 2:30 PM CST Operative Note Name: Alicia Mensah Location: [facility] Procedure Date: 08/25/19 PCP: Lilian Baez Procedure(s): [...] in log * Lines, Drains, Airways: 16 Malagasy George Implants: * No implants in log [...] starting at the apex, went to a prison down the length of the vagina the [...] of overactive bladderwith findings as above. The Egorge catheter was replaced, the vaginal was packed with lubricated packing. Sponge, instrument, needle counts were correct at the end of the procedure. The patient tolerated the procedure without complications and was taken to the PACU in awake and stable condition I was present and scrubbed for the procedure in entirety Guillermina Wagner STANT PROGRAM DIRECTOR Brief Op Note - Guillermina Wagner MD - 08/25/2019 2:26 PM ASSISTANT PROGRAM DIRECTOR [facility] Brief Operative Note Pre-operative diagnosis: Prolapse of [...] implants in log * Dr. Guillermina Wagner [facility] Female Pelvic Medicine and Reconstructive Surgery/Urogynecology STANT PROGRAM DIRECTOR documented in this encounter Plan of Treatment Not on filedocumented as of this encounter Procedures Procedure Name Priority Date/Time Associated Comments Diagnosis HEMOGLOBIN Routine 08/26/2019 6:57 AM Rectocele Results f or this ASSISTANT PROGRAM DIRECTOR procedure are i n the results section. COLPOPEXY, 08/25/2019 11:36 AM Prolapse of vaginal SACROSPINOUS, WITH ASSISTANT PROGRAM DIRECTOR vault after CYSTOSCOPY hysterectomy Rectocele Stress incontinence, female Special Needs Cady Foster to assist5 ft 1in, 262 lbs per H&P LAB RESULT - HIM SCAN 08/17/2019 12:00 AM ASSISTANT PROGRAM DIRECTOR LAB RESULT - HIM SCAN 08/17/2019 12:00 AM ASSISTANT PROGRAM DIRECTOR EKG CARDIAC - HIM SCAN 08/17/2019 12:00 AM ASSISTANT PROGRAM DIRECTOR documented in this encounter Results Hemoglobin (08/26/2019 6:57 AM ASSISTANT PROGRAM DIRECTOR) P athologist Signature Hemoglobin 13.0 11.7 - 15.7 08/26/2019 [facility] g/dL 7:30 AM ASSISTANT PROGRAM DIRECTOR HOSPITAL Specimen Anatomical Collection Method Collection Time Receive d Time (Source) Location / / Volume Laterality Blood specimen 08/26/2019 6:57 AM 020 6:58 (specimen) ASSISTANT PROGRAM DIRECTOR AM ASSISTANT PROGRAM DIRECTOR Guillermina Wagner MD LAB - BLOOD ORDERABLES Performing Organization Address City/State/ZIP Code Phon e Number [facility] [address] [place], [place] [address] [facility] [address] [place], [place] [address] [facility] [phone] LAB RESULT - HIM SCAN (08/17/2019 12:00 AM ASSISTANT PROGRAM DIRECTOR) Specimen (Source) Anatomical Location Collection Method / Collectio n Time Received Time / Laterality Volume 08/17/2019 Narrative This result has an attachment that is no t available. Provider Outside NON-BEAKER LAB TESTING LAB RESULT - HIM SCAN (08/17/2019 12:00 AM ASSISTANT PROGRAM DIRECTOR) Specimen (Source) Anatomical Location Collection Method / Collectio n Time Received Time / Laterality Volume 08/17/2019 Narrative This result has an attachment that is no t available. Provider Outside NON-BEAKER LAB TESTING EKG CARDIAC - HIM SCAN (08/17/2019 12:00 AM ASSISTANT PROGRAM DIRECTOR) Specimen (Source) Anatomical Location Collection Method / Collectio n Time Received Time / Laterality Volume 08/17/2019 Narrative This result has an attachment that is no t available. Provider Outside ECG ORDERABLES documented in this encounter Visit Diagnoses Diagnosis Rectocele - Primary Enterocele Hernia of unspecified site of abdominal cavity without mention of obstruction or gangrene Vaginal vault prolapse Unspecified prolapse of vaginal sharma documented in this encounter Admitting Diagnoses Diagnosis Rectocele documented in this encounter Administered Medications Inactive Administered Medications - up to 3 most recent administrations Medication Order MAR Action Action Date Dose Rate Site acetaminophen (TYLENOL) tablet 650 Given 08/26/2019 4:01 AM ASSISTANT PROGRAM DIRECTOR 650 mg mg 650 mg, Oral, EVERY 6 HOURS, First dose on Zoraida 08/25/19 at 1615, Maximum acetaminophen dose from all sources = 75 mg/kg/day not to exceed 4 grams/day. Given 08/25/2019 9:46 PM ASSISTANT PROGRAM DIRECTOR 650 mg Given 08/25/2019 5:44 PM ASSISTANT PROGRAM DIRECTOR 650 mg docusate sodium (COLACE) capsule 100 mg Given 08/26/2019 7:46 AM ASSISTANT PROGRAM DIRECTOR 100 mg 100 mg, Oral, 2 TIMES DAILY, First dose on Zoraida 08/25/19 at 2000, Hold for loose stools. furosemide (LASIX) tablet 40 mg Given 08/25/2019 6:11 PM ASSISTANT PROGRAM DIRECTOR 40 mg 40 mg, Oral, DAILY, First dose on Zoraida 08/25/19 at 1803 metoprolol succinate ER (TOPROL-XL) 24 hr Given 08/26/2019 7:46 AM ASSISTANT PROGRAM DIRECTOR 100 mg tablet 100 mg 100 mg, Oral, DAILY, First dose on Thu08/26/19 at 0800, DO NOT CRUSH. Tablet may be split in half along score line. pantoprazole (PROTONIX) EC tablet 40 mg Given 08/26/2019 7:46 AM ASSISTANT PROGRAM DIRECTOR 40 mg 40 mg, Oral, DAILY, First dose on Thu08/25/19 at 1800, DO NOT CRUSH. potassium chloride ER (KLOR-CON M) CR tablet Given 11/2019 7:45 AM ASSISTANT PROGRAM DIRECTOR 40 mEq 40 mEq 40 mEq, Oral, DAILY, First dose on Thu08/26/19 at 0800, DO NOT CRUSH sodium chloride (PF) 0.9% PF flush 3 mL Given 08/25/2019 11:28 PM ASSISTANT PROGRAM DIRECTOR 3 mLs 3 mL, Intracatheter, EVERY 8 HOURS, First dose on Zoraida 08/25/19 at 1556, And Q1H PRN, to lock peripheral IV dormant line., Post-procedure Given 08/25/2019 5:44 PM ASSISTANT PROGRAM DIRECTOR 3 mLs documented in this encounter Active and Recently Administered Medications Times are shown in ASSISTANT PROGRAM DIRECTOR. Scheduled Medication Order 08/24/2019 08/25/2019 08/26/2019 acetaminophen (TYLENOL) tablet 650 mg 17 44 (Given - Provider: Krysten Persaud, JERRY)2146 (Given - Provider: Nury Montanez, JERRY) 0401 (Given - Provider: Geni Kirkland, JERRY)1015 [...] (COMPL ETED) 1205 (Given - Provider: Lillie Torres APRN COW WASHER) Routine, 3 g, Intravenous, PRE-OP/PRE-RI OCEDURE, Starting Zoraida 08/25/19 at 1052, For 1 dose, Use 3 gram dose pre-op (Patient weight > or = 120 kg). Discontinue the 1 or 2 gram pre-procedure dose, Indica tions: Perioperative Pharmacoprophylaxis, Pre-procedure docusate sodium (COLACE) capsule 100 mg 1940 (Not Given - Provider: Nury Montanez RN - Reason: Patient/family refused) 0746 (Given - Provider: Joy Dockery RN) 100 mg, Oral, 2 TIMES DAILY, First dose on Zoraida 08/25/19 at 2000, Hold for loose stools. furosemide (LASIX) tablet 40 mg 1810 (Given - Pr ovider: Krysten Persaud RN) [...] line. pantoprazole (PROTONIX) EC tablet 40 mg 1743 (Not Given - Provider: Krysten Persaud RN - Reason: Taken prior to admission) 0746 (Given - Provider: Joy Dockrey RN) 40 mg, Oral, DAILY, First dose on Zoraiad 08/25/19 at 1800, DO NOT CRU SH. potassium chloride ER (KLOR-CON M) CR tablet 40 mEq 0745 (Given - Provider: Joy Dockery RN) 40 mEq, Oral, DAILY, First dose on Thu08/26/19 at 0800, DO NOT CR [facility] sodium chloride (PF) 0.9% PF flush 3 mL 1743 (Given - Provider: Krysten Persaud, JERRY)232 (Given - Provider: Geni Kirkland RN) 0738 [...] of breath / dyspnea, wheezing, Starting Zoraida 08/25/19 at 1555 albuterol (PROVENTIL) neb solution 2.5 mg 2.5 mg, Nebulization, EVERY 6 HOURS PRN, shortness of breath / dyspnea, wheezing, Starting Zoraida 08/25/19 at 1555 lidocaine (LMX4) cream Topical, EVERY 1 HOUR PRN, pain, with VA D insertion or accessing implanted port., Starting Zoraida 08/25/19 at 1555, Do NOT [...] needed for VAD insertion., Post-procedure lidocaine-EPINEPHrine 1 %-[id number] injection (CANCELED) 1347 (Given - Provider: Guillermina Wagner MD) PRN, Starting Zoraida 3/5/20 at 1347, Intra-procedure naloxone (NARCAN) injection 0.1-0.4 mg 0.1-0.4 mg, Intravenous, EVERY 2 MIN PRN , opioid reversal, Starting Zoraida 3//20 at 1555, For respiratory rate LESS than [...] PRN, moderate to severe pain, Starting Zoraida 3/5/20 at 1555 sodium chloride (PF) 0.9% PF flush 3 mL 3 mL, Intracatheter, EVERY 1 MIN PRN, li ne flush, for peripheral IV flush post IV meds, Starting Zoraida 3/5/20 at 1555, Post-procedure sodium chloride 0.9% (bottle) irrigation (CANCELED) 1350 (Given - Provider: Guillermina Wagner MD) PRN, Starting Zoraida 3/5/20 at 1350, Intra-procedure sterile water irrigation (bag) (CANCELED) 1354 (Given - Provider: Guillermina Wagner MD) PRN, Intra-procedure, Starting Zoraida 3/5/20 at 1354, Until Zoraida 3/5 /20 at 1555 documented in this encounter Care Teams Sharepoint Developer Relationship Specialty Start Date End Date Frw, None PCP - Ophthalmology 07/29/06 Lilian Baez MD PCP - General Family Practice 08/10/19 documented as of this encounter
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
[2022-03-18 17:40] LABS: Albumin* 4.2 g/dL (3.3-5.0); Chloride* 107 mmol/L (96-114); Potassium* 4.3 mmol/L (3.6-5.1); Sodium* 140 mmol/L (135-149)
[2022-03-18 17:42] LABS: Bilirubin Total* 0.5 mg/dL (0.1-1.5); Creatinine* 0.7 mg/dL (0.5-1.5); Estimated Glomerular Filt Rate 94 ml/min
[2022-03-18 17:43] LABS: Alanine Aminotransferase* 18 U/L (4-35); Alkaline Phosphatase* 110 U/L (40-150); Aspartate Amino Transferase* 24 U/L (12-35); Blood Urea Nitrogen* 15 mg/dL (7-30); Calcium* 9.8 mg/dL (8.4-10.6); Carbon Dioxide* 24 mmol/L (20-32); Glucose* 103 mg/dL (60-115); Total Protein* 6.9 g/dL (6.0-8.3)
[2022-03-18 17:59] LABS: Vitamin D 25 Hydroxy* 33 ng/mL (30-80)
[2022-03-18 20:09] LABS: Vitamin B12* 260 pg/mL (243-894)
== END 2022-03-18 15:47 | disposition home or self-care (01) ==
PROVIDERS: Visit Provider Family Medicine
DX: Z01.419 Encounter for gynecological examination (general) (routine) without abnormal findings (principal); R20.0 Anesthesia of skin; R20.2 Paresthesia of skin; I10 Essential (primary) hypertension; R53.83 Other fatigue; E55.9 Vitamin D deficiency, unspecified; E66.01 Morbid (severe) obesity due to excess calories
CPT/HCPCS: 80053; 82306; 82607; 84443

== ENCOUNTER 2022-03-27 14:19 | Outpatient (CLI) | payer MEDICARE, OTHER, SELFPAY ==
--- NOTE | 2022-03-27 14:30 | CRLHL7_ITS ---
For Patients: As a result of the Century Cures Act, medical imaging exams and procedure reports are released immediately into your electronic medical record. You may view this report before your referring provider. If you have questions, please contact your health care provider. INDICATION: Left hand weakness. Tremors. TECHNIQUE: Multiplanar multisequence noncontrast MR images acquired through the brain. COMPARISON: None. FINDINGS: Motion artifact degrades multiple sequences. Prominence of the ventricles and sulci compatible with mild diffuse cerebral volume loss. No mass effect or midline shift. Small T2 FLAIR hyperintensities scattered in the supratentorial white matter, nonspecific though most typical for sequelae of mild chronic microvascular ischemic changes. No intracranial hemorrhage or pathologic extra-axial fluid collection. No diffusion restriction to suggest acute infarction. The major arterial flow voids of the skullbase are preserved. Thinning of the left ocular lens. Minimal paranasal sinus mucosal thickening. The mastoid air cells are clear. IMPRESSION: 1. No acute infarction, mass effect, or intracranial hemorrhage. 2. Mild chronic microvascular ischemic changes and diffuse cerebral volume loss. Dictated by Neymar Gupta MD @ 03/27/2022 5:42:03 PM (Electronically Signed)
--- OUTSIDE RECORDS SUMMARY | 2022-03-27 14:33 | XMS_ITS | Encounter Summary ---
:1955 Author Organization [place] Address [address] [facility] [place] [address] Care Team Providers Name Role Phone Frw, None Unavailable Unavailable Lilain Baez MD Primary Care Provider Reason for [...] possible midurethral sling, cystoscopy (General or Spinal) [place] [address] Phone: Fax: Referral ID Status Reason Start Date Expiration Date Visits Requ ested Visits Authorized [id number] 1 1 Encounter Details Date Type Department Care Team Description 08/25/2019 - [facility] Guillermina Wagner MD Rectocele (Primary Dx); 08/26/2019 Encounter [facility] jennifer; Dept [facility] Vaginal vault prolapse [address] [place], [place] [address] [place], [place] [phone] Social History Tobacco Use Types Packs/Day Years [...] Comments Blood Pressure 125/55 08/26/2019 7:42 AM FUND CONTROLLER Pulse 72 08/25/2019 7:17 PM FUND CONTROLLER Temperature 35.5 ??C (95.9 ??F) 08/26/2019 7:42 AM FUND CONTROLLER Respiratory Rate 20 08/26/2019 7:42 AM FUND CONTROLLER Oxygen Saturation 92% 08/26/2019 7:42 AM FUND CONTROLLER Inhaled Oxygen Concentration - - Weight 121.6 kg (268 lb) 08/25/2019 10:17 AM FUND CONTROLLER Height 154.9 cm (5' 1) 08/25/2019 10:17 AM FUND CONTROLLER Body Mass Index 50.64 08/25/2019 10:17 AM FUND CONTROLLER documented in this encounter Medications at Time [...] visit All questions answered Guillermina Wagner MD [facility] Cell: [phone] CONTROLLER Geni Kirkland RN - 08/26/2019 5:48 AM CST George and vaginal packing removed. Patient tolerated it well. Patient refused capno at this time. O297% RA. CONTROLLER Nury Montanez RN - 08/25/2019 7:55 PM CST PRIMARY DIAGNOSIS: Repair of prolapse OUTPATIENT/OBSERVATION GOALS TO BE MET BEFORE DISCHARGE: 1. Stable vital signs Yes on 1L 2. Tolerating diet:Yes- no nausea. [place] ordered 3. Pain controlled with oral pain medications:?? yes scheduled tylenol 4. Positive bowel sounds:?? Yes 5. Voiding without difficulty:?? No- george in 6. Able to ambulate:?? yes walked doyle prior shift 7. Provider specific discharge goals met:?? No- cath and packing in CONTROLLER Krysten Persaud RN - 08/25/2019 4:30 PM CST PRIMARY DIAGNOSIS: Repair of prolapse OUTPATIENT/OBSERVATION GOALS TO BE MET BEFORE DISCHARGE: 1. Stable vital signs Yes on 1L 2. Tolerating diet:Yes- no nausea. [place] ordered 3. Pain controlled with oral pain medications: No pain- hasn't gotten anything for pain 4. Positive bowel sounds: Yes 5. Voiding without difficulty: No- george in 6. Able to ambulate: No 7. Provider specific discharge goals met: No- cath and packing in Gluing Machine Adjuster Nurse Safe discharge environment identified: Yes Barriers to discharge: Yes Entered by: Krysten Persaud 08/25/2019 5:00 PM Please review provider order for any additional goals. Nurse to notify provider when observation goals have been met and patient is ready for discharge. Denies pain and nausea. [place] ordered for dinner. On 2L/capno. and daughter at bedside. George in with good urine output. CONTROLLER Guillermina Wagner MD - 08/25/2019 2:27 PM CST Plase contact me with any questions regarding patient care Guillermina Wagner MD [phone] CONTROLLER documented in this encounter H&P Notes Guillermina Wagner MD - 08/25/2019 11:29 AM CST H&P reviewed, no changes since history and physical was complete. Dr. Guillermina Wagner [facility] Female Pelvic Medicine and Reconstructive Surgery/Urogynecology CONTROLLER Source Note - Sarahi, Provider - 08/22/2019 12:39 PM FUND CONTROLLER documented in this encounter Miscellaneous Notes Plan [...] and daughter. OBSERVATION patient END time: 8:40am CONTROLLER Plan of Care - Geni Kirkland RN [...] for george and packing removal this morning. Gluing Machine Adjuster Nurse Safe discharge environment identified: Yes Barriers to discharge: Yes Entered by: Geni Kirkland 08/26/2019 Please review provider order for any additional goals. Nurse to notify provider when observation goals have been met and patient is ready for discharge. CONTROLLER Plan of Care - Geni Kirkland RN [...] for george and packing removal this morning. Gluing Machine Adjuster Nurse Safe discharge environment identified: Yes Barriers to discharge: Yes Entered by: Geni Kirkland 08/26/2019 Please review provider order for any additional goals. Nurse to notify provider when observation goals have been met and patient is ready for discharge. CONTROLLER Pharmacy-Admission Medication History - Ilenda August Kristy, [facility] - 08/25/2019 9:45 PM CST Medication history and patient interview completed by pre-admitting RN. Reviewed by pharmacist, including [employer] dispense records and chart review. August Landa, Pharm.D. Status Changed by Time of change Nurse Chelly Babcock RN [facility] Aug 18, 2019 ??5:23 PM Prior [...] times daily as needed Yes Reported, Patient CONTROLLER Plan of Care - Krysten Persaud RN - 08/25/2019 4:25 PM CST ROOM # 231 Living Situation (if not independent, order SW consult): Ind with Facility name: [employer] motor homes salesperson: Peter- Activity level at baseline: In Activity level on admit: x1 Patient registered to observation; given Patient Bill of Rights; given the opportunity to ask questions about observation status and their plan of care. Patient has been oriented to the observation room, bathroom and call light is in place. Discussed discharge goals and expectations with patient/family. CONTROLLER Op Note - Guillermina Wagner MD - 08/25/2019 2:30 PM CST Operative Note Name: Alicia Mensah Location: [facility] Procedure Date: 08/25/19 PCP: Lilian Baez Procedure(s): [...] in log * Lines, Drains, Airways: 16 Haitian George Implants: * No implants in log [...] starting at the apex, went to a assisted down the length of the vagina the [...] for the procedure in entirety Guillermina Wagner CONTROLLER Brief Op Note - Guillermina Wagner MD - 08/25/2019 2:26 PM FUND CONTROLLER [facility] Brief Operative Note Pre-operative diagnosis: Prolapse of [...] implants in log * Dr. Guillermina Wagner [facility] Female Pelvic Medicine and Reconstructive Surgery/Urogynecology CONTROLLER documented in this encounter Plan of Treatment Not on filedocumented as of this encounter Procedures Procedure Name Priority Date/Time Associated Comments Diagnosis HEMOGLOBIN Routine 08/26/2019 6:57 AM Rectocele Results f or this FUND CONTROLLER procedure are i n the results section. COLPOPEXY, 08/25/2019 11:36 AM Prolapse of vaginal SACROSPINOUS, WITH FUND CONTROLLER vault after CYSTOSCOPY hysterectomy Rectocele Stress incontinence, female Special Needs Cady Foster to assist5 ft 1in, 262 lbs per H&P LAB RESULT - HIM SCAN 08/17/2019 12:00 AM FUND CONTROLLER LAB RESULT - HIM SCAN 08/17/2019 12:00 AM FUND CONTROLLER EKG CARDIAC - HIM SCAN 08/17/2019 12:00 AM FUND CONTROLLER documented in this encounter Results Hemoglobin (08/26/2019 6:57 AM FUND CONTROLLER) P athologist Signature Hemoglobin 13.0 11.7 - 15.7 08/26/2019 [facility] g/dL 7:30 AM FUND CONTROLLER HOSPITAL Specimen Anatomical Collection Method Collection Time Receive d Time (Source) Location / / Volume Laterality Blood specimen 08/26/2019 6:57 AM 020 6:58 (specimen) FUND CONTROLLER AM FUND CONTROLLER Guillermina Wagner MD LAB - BLOOD ORDERABLES Performing Organization Address City/State/ZIP Code Phon e Number [facility] [address], [place] [address] [facility] [address] [place], [place] [address] [facility] [phone] LAB RESULT - HIM SCAN (08/17/2019 12:00 AM FUND CONTROLLER) Specimen (Source) Anatomical Location Collection Method / Collectio n Time Received Time / Laterality Volume 08/17/2019 Narrative This result has an attachment that is no t available. Provider Outside NON-BEAKER LAB TESTING LAB RESULT - HIM SCAN (08/17/2019 12:00 AM FUND CONTROLLER) Specimen (Source) Anatomical Location Collection Method / Collectio n Time Received Time / Laterality Volume 08/17/2019 Narrative This result has an attachment that is no t available. Provider Outside NON-BEAKER LAB TESTING EKG CARDIAC - HIM SCAN (08/17/2019 12:00 AM FUND CONTROLLER) Specimen (Source) Anatomical Location Collection Method / [...] (TYLENOL) tablet 650 Given 08/26/2019 4:01 AM FUND CONTROLLER 650 mg mg 650 mg, Oral, EVERY 6 HOURS, First dose on Zoraida 08/25/19 at 1615, Maximum acetaminophen dose from all sources = 75 mg/kg/day not to exceed 4 grams/day. Given 08/25/2019 9:46 PM FUND CONTROLLER 650 mg Given 08/25/2019 5:44 PM FUND CONTROLLER 650 mg docusate sodium (COLACE) capsule 100 mg Given 08/26/2019 7:46 AM FUND CONTROLLER 100 mg 100 mg, Oral, 2 TIMES DAILY, First dose on Zoraida 08/25/19 at 2000, Hold for loose stools. furosemide (LASIX) tablet 40 mg Given 08/25/2019 6:11 PM FUND CONTROLLER 40 mg 40 mg, Oral, DAILY, First dose on Zoraida 08/25/19 at 1803 metoprolol succinate ER (TOPROL-XL) 24 hr Given 08/26/2019 7:46 AM FUND CONTROLLER 100 mg tablet 100 mg 100 mg, Oral, DAILY, First dose on Thu08/26/19 at 0800, DO NOT CRUSH. Tablet may be split in half along score line. pantoprazole (PROTONIX) EC tablet 40 mg Given 08/26/2019 7:46 AM FUND CONTROLLER 40 mg 40 mg, Oral, DAILY, First dose on Thu08/25/19 at 1800, DO NOT CRUSH. potassium chloride ER (KLOR-CON M) CR tablet Given 11/2019 7:45 AM FUND CONTROLLER 40 mEq 40 mEq 40 mEq, Oral, DAILY, First dose on Thu08/26/19 at 0800, DO NOT CRUSH sodium chloride (PF) 0.9% PF flush 3 mL Given 08/25/2019 11:28 PM FUND CONTROLLER 3 mLs 3 mL, Intracatheter, EVERY 8 HOURS, First dose on Zoraida 08/25/19 at 1556, And Q1H PRN, to lock peripheral IV dormant line., Post-procedure Given 08/25/2019 5:44 PM FUND CONTROLLER 3 mLs documented in this encounter Active and Recently Administered Medications Times are shown in FUND CONTROLLER. Scheduled Medication Order 08/24/2019 08/25/2019 08/26/2019 acetaminophen [...] 1205 (Given - Provider: Lillie Torres APRN PLATE MILL MILL HAND) Routine, 3 g, Intravenous, PRE-OP/PRE-NY OCEDURE, Starting Zoraida 08/25/19 at 1052, For [...] needed for VAD insertion., Post-procedure lidocaine-EPINEPHrine 1 %-[id number] injection (CANCELED) 1347 (Given - Provider: Guillermina [...] 1555 documented in this encounter Care Teams Director Of Sleep Relationship Specialty Start Date End Date Frw, None PCP - Ophthalmology 07/29/06 Lilian Baez MD PCP - General Family Practice 08/10/19 documented as of this encounter
--- OUTSIDE RECORDS SUMMARY | 2022-03-27 14:33 | XMS_ITS | Encounter Summary ---
:1955 Author Organization [facility] Address [address] [place] [address]. [place] [address] Care Team Providers Name Role Phone Cleve Morgan MD Unavailable Reason for Visit Reason Comments [facility] Encounter Details Date Type Department Care Team Description 10/29/2005 Office Visit [facility] in [place] , w CBO [address] [place] [phone] Social History Tobacco Use Types Packs/Day Years Used Date Never Assessed Sex Assigned at Date Recorded Not on file documented as of this encounter Plan of Treatment Not on filedocumented as of this encounter Visit Diagnoses Not on filedocumented in this encounter Care Teams Auto Specialty Services Manager Relationship Specialty Start Date End Date Cleve Morgan MD PCP - Ophthalmology 10/29/05 2 [facility] [address] [place] [address] documented as of this encounter
--- OUTSIDE RECORDS SUMMARY | 2022-03-27 14:33 | XMS_ITS | Clinical Summary ---
:1955 Author Organization [place] Address [address] [place] [address]. [place] [address] Care Team Providers Name Role Phone Frw, [...] Comments Blood Pressure 125/55 08/26/2019 7:42 AM INCIDENT RESPONSE ANALYST Pulse 72 08/25/2019 7:17 PM INCIDENT RESPONSE ANALYST Temperature 35.5 ??C (95.9 ??F) 08/26/2019 7:42 AM INCIDENT RESPONSE ANALYST Respiratory Rate 20 08/26/2019 7:42 AM INCIDENT RESPONSE ANALYST Oxygen Saturation 92% 08/26/2019 7:42 AM INCIDENT RESPONSE ANALYST Inhaled Oxygen Concentration - - Weight 121.6 kg (268 lb) 08/25/2019 10:17 AM INCIDENT RESPONSE ANALYST Height 154.9 cm (5' 1) 08/25/2019 10:17 AM INCIDENT RESPONSE ANALYST Body Mass Index 50.64 08/25/2019 10:17 AM INCIDENT RESPONSE ANALYST Plan of Treatment Health Maintenance Due Date [...] Address T ype Group Dates MEDICARE MEDICARE [id number] 2019-Pre [phone] Medic are sent [phone] CLAIMS [address] [facility] [address] [facility] [id number] 2019-Pre [phone] HMO FULLY INSURED sent [phone] [id number] Guarantor Name Account Type Relation to Date of Phone Billing Patient Address ALICIA OLIVARES Personal/Family [phone] [id number] (Home) [place] [phone] SHER BUSTOS Personal/Family Self [phone] (Home) [place] [address] Alicia Olivares Personal/Family Self [phone] (Home) [place] [address] Advance Directives For more information, please contact: [phone] Latest Code Status on File Code Status Date Activated Date Inactivated Comments Full Code 08/26/2019 7:37 AM Code status determined by: Discussion with patient/legal dec ision maker Full Code 08/25/2019 3:55 PM 08/26/2019 7:37 AM Code status determined by: Discussion with patient/legal dec ision maker Care Teams Electric Refrigerator Servicer Relationship Specialty Start Date End Date Frw, None PCP - Ophthalmology 07/29/06 Lilian Baez MD PCP - General Family Practice 08/10/19
--- OUTSIDE RECORDS SUMMARY | 2022-03-27 14:33 | XMS_ITS | Encounter Summary ---
:1955 Author Organization [facility] Address [address] [place] [address]. [place] [address] Care Team Providers Name Role Phone Unavailable Primary Care Provider Unavailable Encounter Details Date Type Department Care Team Description 10/15/2005 Office Visit [facility] Cleve Morgan MD in [facility] SURGERY [address] [place] [phone] [place] [address] [phone] (Wo rk) Social History Tobacco Use Types Packs/Day Years Used Date Never Assessed Sex Assigned at Date Recorded Not on file documented as of this encounter Progress Notes Trini Chouhdury - 10/20/2005 11:35 AM CDT HISTORY: The [...] Procedure Name Priority Date/Time Associated Diagnosis Comme [facility] OPHTHALMIC BIOMETRY, W/IOL Routine 10/15/2005 CALCULATION documented in this encounter Results [facility] EYE BIOMETRY W LENS CALC (10/15/2005) Anatomical Region Laterality Modality Other Narrative This result has an attachment that is no t available. Cleve Morgan MD PROCEDURES documented in this encounter Visit Diagnoses Not on filedocumented in this encounter
--- OUTSIDE RECORDS SUMMARY | 2022-03-27 14:33 | XMS_ITS | Encounter Summary ---
:1955 Author Organization [place] Address [address] [place] [address]. [place] [address] Care Team Providers Name Role Phone Frw, [...] on filedocumented in this encounter Care Teams Cash Application Representative Relationship Specialty Start Date End Date Nikki, Felipe PCP - Ophthalmology 07/29/06 Lilian Baez MD PCP - General Family Practice 08/10/19 documented as of this encounter
--- OUTSIDE RECORDS SUMMARY | 2022-03-27 14:33 | XMS_ITS | Encounter Summary ---
:1955 Author Organization [facility] Address [address] [place] [address]. [place] [address] Care Team Providers Name Role Phone Cleve Morgan MD Unavailable Reason for Visit Reason Onset Date Comments Triage 11/05/2005 [facility] Encounter Details Date Type Department Care Team Description 11/05/2005 Telephone [facility] Xuan Cornelius Tria ge ([facility] in [place] RN randall sanders) Orthopedics [address] [place] [phone] Social History Tobacco Use Types Packs/Day [...] year old Time: 2:50 PM Phone Numbers: [phone] (home) Pharmacy: Data Unavailable ASSESSMENT Presenting Problem: [...] INTERVENTION Disposition: patient already has appointment with supervisor telephone information in [place] tomorrow and this will be addressed there [...] on filedocumented in this encounter Care Teams Tile Fitter Relationship Specialty Start Date End Date Cleve Morgan MD PCP - Ophthalmology 10/29/05 2 [facility] [address] [place] [address] documented as of this encounter
--- OUTSIDE RECORDS SUMMARY | 2022-03-27 14:33 | XMS_ITS | Encounter Summary ---
:1955 Author Organization [facility] Address [address] [facility] [place] [address] Care Team Providers Name Role Phone Frw, [...] CYSTOURETHROSCOPY C LAPAROSCOPY, SURGICAL, COLPOPEXY [address] C COLPOPEXY, VAGINAL; INTRA- PERITONEAL APPROACH (UTEROSACRAL, LEVATOR MYORRHAPHY) Sacrospinus ligament alignment, posterior repair, perineorrhaphy (General or Spinal) possible midurethral sling, cystoscopy (General or Spinal) [place] [address] Phone: Fax: Referral ID Status Reason Start Date Expiration Date Visits Requ ested Visits Authorized [id number] 1 1 Encounter Details Date Type Department Care Team Description 08/25/2019 Surgery [facility] Guillermina Wagner MD Sacrospinus ligament [facility] susupension posterior [address] [facility] repair, [place], [place] [address] [facility] perineorrhaphy, [address] [place] [address] cystoscopy [phone] (Wo rk) Surgery Details Date/Time Status Location [...] Gynecology 1 Special Needs Cady Cristian to [id number] 1in, 262 lbs per H&P documented in [...] Comments Blood Pressure 125/66 08/25/2019 10:33 AM STILL OPERATOR BRANDY Pulse - - Temperature 36.7 ??C (98 ??F) 08/25/2019 10:17 AM STILL OPERATOR BRANDY Respiratory Rate 18 08/25/2019 10:17 AM STILL OPERATOR BRANDY Oxygen Saturation 99% 08/25/2019 10:17 AM STILL OPERATOR BRANDY Inhaled Oxygen Concentration - - Weight 121.6 kg (268 lb) 08/25/2019 10:17 AM STILL OPERATOR BRANDY Height 154.9 cm (5' 1) 08/25/2019 10:17 AM STILL OPERATOR BRANDY Body Mass Index 50.64 08/25/2019 10:17 AM STILL OPERATOR BRANDY documented in this encounter Medications at Time [...] visit All questions answered Guillermina Wagner MD [facility] Cell: [phone] L OPERATOR BRANDY Geni Kirkland RN - 08/26/2019 5:48 AM CST George and vaginal packing removed. Patient tolerated it well. Patient refused capno at this time. O297% RA. L OPERATOR BRANDY Nury Montanez RN - 08/25/2019 7:55 PM CST PRIMARY DIAGNOSIS: Repair of prolapse OUTPATIENT/OBSERVATION GOALS TO BE MET BEFORE DISCHARGE: 1. Stable vital signs Yes on 1L 2. Tolerating diet:Yes- no nausea. Annona ordered 3. Pain controlled with oral pain medications:?? yes scheduled tylenol 4. Positive bowel sounds:?? Yes 5. Voiding without difficulty:?? No- george in 6. Able to ambulate:?? yes walked doyle prior shift 7. Provider specific discharge goals met:?? No- cath and packing in L OPERATOR BRANDY Krysten Persaud RN - 08/25/2019 4:30 PM CST PRIMARY DIAGNOSIS: Repair of prolapse OUTPATIENT/OBSERVATION GOALS TO BE MET BEFORE DISCHARGE: 1. Stable vital signs Yes on 1L 2. Tolerating diet:Yes- no nausea. Annona ordered 3. Pain controlled with oral pain medications: No pain- hasn't gotten anything for pain 4. Positive bowel sounds: Yes 5. Voiding without difficulty: No- george in 6. Able to ambulate: No 7. Provider specific discharge goals met: No- cath and packing in Dietetics Director Nurse Safe discharge environment identified: Yes Barriers to discharge: Yes Entered by: Krysten Persaud 08/25/2019 5:00 PM Please review provider order for any additional goals. Nurse to notify provider when observation goals have been met and patient is ready for discharge. Denies pain and nausea. Annona ordered for dinner. On 2L/capno. and daughter at bedside. George in with good urine output. L OPERATOR BRANDY Guillermina Wagner MD - 08/25/2019 2:27 PM CST Plase contact me with any questions regarding patient care Guillermina Wagner MD [phone] L OPERATOR BRANDY documented in this encounter H&P Notes Guillermina Wagner MD - 08/25/2019 11:29 AM CST H&P reviewed, no changes since history and physical was complete. Dr. Guillermina Wagner [facility] Female Pelvic Medicine and Reconstructive Surgery/Urogynecology L OPERATOR BRANDY Source Note - Sarahi, Provider - 08/22/2019 12:39 PM STILL OPERATOR BRANDY documented in this encounter Miscellaneous Notes Plan [...] and daughter. OBSERVATION patient END time: 8:40am L OPERATOR BRANDY Plan of Care - Geni Kirkland RN [...] for george and packing removal this morning. Dietetics Director Nurse Safe discharge environment identified: Yes Barriers to discharge: Yes Entered by: Geni Kirkland 08/26/2019 Please review provider order for any additional goals. Nurse to notify provider when observation goals have been met and patient is ready for discharge. L OPERATOR BRANDY Dilma of Alan - Geni Kirkland RN [...] for george and packing removal this morning. Dietetics Director Nurse Safe discharge environment identified: Yes Barriers to discharge: Yes Entered by: Geni Kirkland 08/26/2019 Please review provider order for any additional goals. Nurse to notify provider when observation goals have been met and patient is ready for discharge. L OPERATOR BRANDY Pharmacy-Admission Medication History - August Landa [facility] - 08/25/2019 9:45 PM CST Medication history and patient interview completed by pre-admitting RN. Reviewed by pharmacist, including [employer] dispense records and chart review. August Landa, Pharm.D. Status Changed by Time of change Nurse Complete Chelly Krishnamurthy RN [facility] Aug 18, 2019 ??5:23 PM Prior [...] times daily as needed Yes Reported, Patient L OPERATOR BRANDY Plan of Care - Krysten Persaud RN - 08/25/2019 4:25 PM CST ROOM # 231 Living Situation (if not independent, order SW consult): Ind with Facility name: maintenance person: Peter- Activity level at baseline: In Activity level on admit: x1 Patient registered to observation; given Patient Bill of Rights; given the opportunity to ask questions about observation status and their plan of care. Patient has been oriented to the observation room, bathroom and call light is in place. Discussed discharge goals and expectations with patient/family. L OPERATOR BRANDY Op Note - Guillermina Wagner MD - 08/25/2019 2:30 PM CST Operative Note Name: Alicia Mensah Location: [facility] Procedure Date: 08/25/19 PCP: Lilian Baez Procedure(s): [...] in log * Lines, Drains, Airways: 16 Sami George Implants: * No implants in log [...] starting at the apex, went to a mcfp down the length of the vagina the [...] procedure in entirety Guillermina Camryn Andreina Kristy L OPERATOR BRANDY Brief Op Note - Guillermina Wagner MD - 08/25/2019 2:26 PM STILL OPERATOR BRANDY [facility] Brief Operative Note Pre-operative diagnosis: Prolapse of [...] implants in log * Dr. Guillermina Wagner [facility] Female Pelvic Medicine and Reconstructive Surgery/Urogynecology L OPERATOR BRANDY documented in this encounter Plan of Treatment Not on filedocumented as of this encounter Procedures Procedure Name Priority Date/Time Associated Comments Diagnosis HEMOGLOBIN Routine 08/26/2019 6:57 AM Rectocele Results f or this STILL OPERATOR BRANDY procedure are i n the results section. COLPOPEXY, 08/25/2019 11:36 AM Prolapse of vaginal SACROSPINOUS, WITH STILL OPERATOR BRANDY vault after CYSTOSCOPY hysterectomy Rectocele Stress incontinence, female Special Needs Cady Foster to assist5 ft 1in, 262 lbs per H&P LAB RESULT - HIM SCAN 08/17/2019 12:00 AM STILL OPERATOR BRANDY LAB RESULT - HIM SCAN 08/17/2019 12:00 AM STILL OPERATOR BRANDY EKG CARDIAC - HIM SCAN 08/17/2019 12:00 AM STILL OPERATOR BRANDY documented in this encounter Results Hemoglobin (08/26/2019 6:57 AM STILL OPERATOR BRANDY) P athologist Signature Hemoglobin 13.0 11.7 - 15.7 08/26/2019 [facility] g/dL 7:30 AM STILL OPERATOR BRANDY HOSPITAL Specimen Anatomical Collection Method Collection Time Receive d Time (Source) Location / / Volume Laterality Blood specimen 08/26/2019 6:57 AM 020 6:58 (specimen) STILL OPERATOR BRANDY AM STILL OPERATOR BRANDY Guillermina Wagner MD LAB - BLOOD ORDERABLES Performing Organization Address City/State/ZIP Code Phon e Number M [facility] [address], [place] [address] [facility] [address] [place], [place] [address] [address] [phone] LAB RESULT - HIM SCAN (08/17/2019 12:00 AM STILL OPERATOR BRANDY) Specimen (Source) Anatomical Location Collection Method / Collectio n Time Received Time / Laterality Volume 08/17/2019 Narrative This result has an attachment that is no t available. Provider Outside NON-BEAKER LAB TESTING LAB RESULT - HIM SCAN (08/17/2019 12:00 AM STILL OPERATOR BRANDY) Specimen (Source) Anatomical Location Collection Method / Collectio n Time Received Time / Laterality Volume 08/17/2019 Narrative This result has an attachment that is no t available. Provider Outside NON-BEAKER LAB TESTING EKG CARDIAC - HIM SCAN (08/17/2019 12:00 AM STILL OPERATOR BRANDY) Specimen (Source) Anatomical Location Collection Method / [...] (TYLENOL) tablet 650 Given 08/26/2019 4:01 AM STILL OPERATOR BRANDY 650 mg mg 650 mg, Oral, EVERY 6 HOURS, First dose on Zoraida 08/25/19 at 1615, Maximum acetaminophen dose from all sources = 75 mg/kg/day not to exceed 4 grams/day. Given 08/25/2019 9:46 PM STILL OPERATOR BRANDY 650 mg Given 08/25/2019 5:44 PM STILL OPERATOR BRANDY 650 mg docusate sodium (COLACE) capsule 100 mg Given 08/26/2019 7:46 AM STILL OPERATOR BRANDY 100 mg 100 mg, Oral, 2 TIMES DAILY, First dose on Thu08/25/19 at 2000, Hold for loose stools. furosemide (LASIX) tablet 40 mg Given 08/25/2019 6:11 PM STILL OPERATOR BRANDY 40 mg 40 mg, Oral, DAILY, First dose on Zoraida 08/25/19 at 1803 lidocaine-EPINEPHrine 1 Given 08/25/2019 1:47 PM 20 mLs Operative %-1:817006 injection STILL OPERATOR BRANDY Site/Surgical S ite PRN, Starting on Thu08/25/19 at 1347, Intra-procedure metoprolol succinate ER (TOPROL-XL) 24 hr Given 08/26/2019 7:46 AM STILL OPERATOR BRANDY 100 mg tablet 100 mg 100 mg, Oral, DAILY, First dose on Thu08/26/19 at 0800, DO NOT CRUSH. Tablet may be split in half along score line. pantoprazole (PROTONIX) EC tablet 40 mg Given 08/26/2019 7:46 AM STILL OPERATOR BRANDY 40 mg 40 mg, Oral, DAILY, First dose on Thu08/25/19 at 1800, DO NOT CRUSH. potassium chloride ER (KLOR-CON M) CR tablet Given 11/2019 7:45 AM STILL OPERATOR BRANDY 40 mEq 40 mEq 40 mEq, Oral, DAILY, First dose on Thu08/26/19 at 0800, DO NOT CRUSH sodium chloride (PF) 0.9% PF flush 3 mL Given 08/25/2019 11:28 PM STILL OPERATOR BRANDY 3 mLs 3 mL, Intracatheter, EVERY 8 HOURS, First dose on Zoraida 08/25/19 at 1556, And Q1H PRN, to lock peripheral IV dormant line., Post-procedure Given 08/25/2019 5:44 PM STILL OPERATOR BRANDY 3 mLs sodium chloride 0.9% Given 08/25/2019 1:50 PM 400 mLs Operative Site/Surgical (bottle) irrigation STILL OPERATOR BRANDY Site PRN, Starting on Thu08/25/19 at 1350, Intra-procedure sterile water irrigation Given 08/25/2019 1:54 PM 300 mLs Operative Site/Surgical (bag) STILL OPERATOR BRANDY Site PRN, Intra-procedure, Starting on Zoraida 08/25/19 at 1354, Until Zoraida 08/25/19 at 1555 documented in this encounter Active and Recently Administered Medications Times are shown in STILL OPERATOR BRANDY. Scheduled Medication Order 08/24/2019 08/25/2019 08/26/2019 acetaminophen [...] ETED) 1205 (Given - Provider: Lillie Torres, RIBBON CLEANER MOTORCYCLE ENGINE ASSEMBLER) Routine, 3 g, Intravenous, PRE-OP/PRE-WY OCEDURE, Starting Zoraida 08/25/19 at 1052, For [...] 40 mg 181 (Given - Pr ovider: Kyrsten Persaud RN) 0746 (Not Given - Provider: [...] 40 mEq 0745 (Given - Provider: Joy Dockery, RN) 40 mEq, Oral, DAILY, First [...] needed for VAD insertion., Post-procedure lidocaine-EPINEPHrine 1 %-1:[id number] injection (CANCELED) 1347 (Given - Provider: Guillermina [...] 1555 documented in this encounter Care Teams Die Maker Electronic Relationship Specialty Start Date End Date Frw, None PCP - Ophthalmology 07/29/06 Lilian Baez MD PCP - General Family Practice 08/10/19 documented as of this encounter
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
== END 2022-03-27 14:20 | disposition home or self-care (01) ==
LOC: MRI 14:20
PROVIDERS: PCP Family Medicine; Visit Provider Family Medicine
DX: R29.898 Other symptoms and signs involving the musculoskeletal system (principal); I67.82 Cerebral ischemia; R25.1 Tremor, unspecified
CPT/HCPCS: 70551

== ENCOUNTER 2023-04-25 18:39 | Emergency (ER) | payer MEDICARE, OTHER, SELFPAY ==
[2023-04-25 18:45] VITALS: BP 165/65; PULSE 82; RESP 20; TEMP 37.1; O2SAT 96; BMI 111.9
--- NOTE | 2023-04-25 18:47 | CRLHL7_ITS ---
For Patients: As a result of the Century Cures Act, medical imaging exams and procedure reports are released immediately into your electronic medical record. You may view this report before your referring provider. If you have questions, please contact your health care provider. Indication: Fall Technique: Noncontrast head CT Comparison: No comparison Findings: Axial noncontrast images through the brain parenchyma demonstrates no acute intracranial hemorrhage or mass. No midline shift. No abnormal extra-axial air fluid collections are seen. Skull and scalp are unremarkable. Impression: No acute intracranial hemorrhage or mass. Please note that all CT scans at this facility use dose modulation, iterative reconstruction, and/or weight-based dosing when appropriate to reduce radiation dose to as low as reasonably achievable. Dictated by Delia Vazquez MD @ 04/25/2023 8:11:41 PM (Electronically Signed)
--- NOTE | 2023-04-25 19:28 | ED.GENADULT ---
HPI - General Adult General Date Seen: 04/25/23 Chief complaint: Laceration/Wound Stated complaint: fall Time Seen by Provider: 04/25/23 18:43 Source: patient Mode of arrival: ambulatory Limitations: no limitations History of Present Illness HPI narrative: Patient is a 67-year-old woman who was out at a restaurant with her celebrating his birthday. She stumbled and fell hitting her head on a tile floor. She sustained a laceration above her right eyebrow. She did not have loss of consciousness, mild headache, no neck pain, no vomiting, seizure, or other acute changes neurologically. She does not take any anticoagulation. Last tetanus was in 2013. No other injuries or complaints. Related Data Home Medications Medication Instructions Recorded Confirmed acetaminophen 325 mg capsule 650 mg PO Q6H PRN 03/12/22 03/18/22 albuterol 90 mcg/actuation aerosol 2 spray inhalation PRN 03/12/22 03/18/22 inhaler ascorbic acid (vitamin C) 500 mg 500 cap PO DAILY 03/12/22 03/18/22 capsule aspirin 81 mg tablet,delayed 81 mg PO QDAY 03/12/22 03/18/22 release benzonatate 200 mg capsule 200 mg PO PRN 03/12/22 03/18/22 cholecalciferol (vitamin D3) 125 5,000 unit PO DAILY 03/12/22 03/18/22 mcg (5,000 unit) capsule fluticasone 250 mcg-salmeterol 50 1 inhalation BID 03/12/22 03/18/22 mcg/dose blistr powdr for inhalation losartan 100 mg tablet 100 mg PO QDAY 03/12/22 03/18/22 meclizine 25 mg tablet 25 mg PO QDAY PRN 03/12/22 03/18/22 multivitamin 1 tab PO QAM 03/12/22 03/18/22 potassium chloride 20 mEq 40 meq PO DAILY 03/12/22 03/18/22 tablet,extended release(part/cryst) sertraline 100 mg tablet 100 mg PO QDAY 03/12/22 03/18/22 tramadol 50 mg tablet 50 mg PO Q6-8H PRN 03/12/22 03/18/22 alendronate 70 mg tablet 70 mg PO QWEEK 03/18/22 03/18/22 calcium carbonate 600 mg calcium 1,500 mg PO DAILY 03/18/22 03/18/22 (1,500 mg) tablet furosemide 80 mg tablet 80 mg PO DAILY 03/18/22 03/18/22 metoprolol succinate 100 mg 100 mg PO DAILY 03/18/22 03/18/22 tablet,extended release 24 hr valacyclovir 500 mg tablet 500 mg PO BID PRN 03/18/22 03/18/22 Previous Rx's Medication Instructions Recorded cyanocobalamin (vitamin B-12) 1,000 mcg PO QDAY #100 caps 03/19/22 1,000 mcg capsule pantoprazole 40 mg tablet,delayed 40 mg PO DAILY #90 tabs 04/04/22 release Allergies Allergy/AdvReac Type Severity Reaction Status Date / Time ragweed pollen Allergy Unknown watery Verified 03/18/22 15:01 eyes, sneezing, headache Adhesives Allergy Unknown Rash Uncoded 03/19/22 10:28 Review of Systems Status of ROS: Reports: 6 or more systems reviewed and unremarkable except as noted in History and below [facility] Medical History (Updated 04/25/23 @ 20:30 by Mery Victor MD) Anxiety ?F41.9 - Anxiety disorder, unspecified (ICD-10) Mild depression ?F32.A - Depression, unspecified (ICD-10) Allergic rhinitis ?J30.9 - Allergic rhinitis, unspecified (ICD-10) Low vitamin B12 level ?E53.8 - Deficiency of other specified B group vitamins (ICD-10) Mobility poor ?Z74.09 - Other reduced mobility (ICD-10) Leg edema ?R60.0 - Localized edema (ICD-10) Obstructive sleep apnea treated with continuous positive airway pressure (CPAP) (~2014) ?G47.33 - Obstructive sleep apnea (adult) (pediatric) (ICD-10) ?Z99.89 - Dependence on other enabling machines and devices (ICD-10) Vitamin D insufficiency (2017) ?E55.9 - Vitamin D deficiency, unspecified (ICD-10) Recurrent herpes labialis ?B00.1 - Herpesviral vesicular dermatitis (ICD-10) Prediabetes (2016) ?R73.03 - Prediabetes (ICD-10) Morbid obesity ?E66.01 - Morbid (severe) obesity due to excess calories (ICD-10) Migraine headache ?G43.909 - Migraine, unspecified, not intractable, without status migrainosus (ICD-10) Hypokalemia (2011) ?E87.6 - Hypokalemia (ICD-10) Hypertension ?I10 - Essential (primary) hypertension (ICD-10) History of asthma ?Z87.09 - Personal history of other diseases of the respiratory system (ICD-10) Gastroesophageal reflux disease ?K21.9 - Gastro-esophageal reflux disease without esophagitis (ICD-10) C2 cervical fracture (2006) ?S12.100A - Unspecified displaced fracture of second cervical vertebra, initial encounter for closed fracture (ICD-10) Surgical History (Updated 03/19/22 @ 10:47 by Tina Bradshaw) History of exploratory laparotomy (2006) ?Z98.890 - Other specified postprocedural states (ICD-10) History of prolapse of bladder ?Z87.448 - Personal history of other diseases of urinary system (ICD-10) History of brain surgery (~2006) ?Z98.890 - Other specified postprocedural states (ICD-10) History of incisional hernia repair (07/06/12) ?Z98.890 - Other specified postprocedural states (ICD-10) ?Z87.19 - Personal history of other diseases of the digestive system (ICD-10) Status post laparoscopic cholecystectomy (10/03/11) ?Z90.49 - Acquired absence of other specified parts of digestive tract (ICD-10) S/P total knee arthroplasty (~2004) ?Z96.659 - Presence of unspecified artificial knee joint (ICD-10) History of total hysterectomy with bilateral salpingo-oophorectomy (BSO) (1985) ?Z90.710 - Acquired absence of both cervix and uterus (ICD-10) ?Z90.722 - Acquired absence of ovaries, bilateral (ICD-10) ?Z90.79 - Acquired absence of other genital organ(s) (ICD-10) History of breast biopsy (05/16/09) ?Z98.890 - Other specified postprocedural states (ICD-10) Family History (Updated 03/19/22 @ 10:26 by Tina Bradshaw) Mother Stroke, Onset Age: 82 Myocardial infarction, Onset Age: 81 High cholesterol Colon cancer, Onset Age: 82 Father Stroke, Onset Age: 60 High blood pressure COPD (chronic obstructive pulmonary disease) Melanoma Maternal Grandmother Colon cancer, Onset Age: 40 Other No family history of breast cancer No family history of ovarian cancer Social History (Updated 03/18/22 @ 16:44 by Shannan Smith MD) Narrative: , 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 Head: Normocephalic. Eyes: Pupils are equal and reactive, extra movements are full. A 3 cm laceration is noted over the right eyebrow, bleeding controlled. No bony deformity. ENT: No other facial trauma. Neck: Nontender to palpation. Neurologic: She is alert, conversant, gait stable. Skin: Warm dry well perfused otherwise intact. Const: Vital Signs, click to edit/add: Vital Signs - 24 hr 04/25/23 18:45 04/25/23 19:56 04/25/23 19:57 Temperature 98.8 F Pulse Rate 83 83 Pulse Rate [Pulse Oximeter] 82 Respiratory Rate 20 18 Blood Pressure 169/83 H Blood Pressure [Ri ght Upper Arm] 165/65 H Pulse Oximetry 96 93 93 Oxygen Delivery Me thod Room Air 04/25/23 20:00 04/25/23 20:01 Temperature Pulse Rate 80 80 Pulse Rate [Pulse Oximeter] Respiratory Rate 18 Blood Pressure 154/72 H Blood Pressure [Ri ght Upper Arm] Pulse Oximetry 93 94 Oxygen Delivery Me thod Documenting provider has reviewed patient's vital signs: yes Course Course ED Course: Procedure note: The wound above the eye was anesthetized using lidocaine with epinephrine, explored, no evidence of foreign body or injury to deeper structures. I close this using initially 5 0 Vicryl, a total of 2 deep simple interrupted sutures were placed to bring the wound edges together. I then placed 10 superficial simple interrupted sutures using 6 0 nylon. She tolerated this well, no immediate complication. Antibiotic ointment applied by the nurse. CT of the head was obtained to rule out intracranial hemorrhage, fracture or other abnormality. Read by Radiology as negative. Patient is stable for discharge home, routine wound care, return for signs of infection or more serious head injury such as severe headache, vomiting, altered mentation etcetera. Recommend suture removal in 5-6 days in clinic. Vital Signs Vital signs: Initial Vital Signs Temperature 98.8 F 04/25/23 18:45 Temperature Source Temporal Artery Scan 04/25/23 18:45 Pulse Rate 82 04/25/23 18:45 Respiratory Rate 20 04/25/23 18:45 Blood Pressure 165/65 H 04/25/23 18:45 Blood Pressure Mean 98 04/25/23 18:45 Blood Pressure Position Supine 04/25/23 18:45 Pulse Oximetry 96 04/25/23 18:45 Oxygen Delivery Method Room Air 04/25/23 18:45 Vital Signs Temperature 98.8 F 04/25/23 18:45 Pulse Rate 82 04/25/23 18:45 Respiratory Rate 20 04/25/23 18:45 Blood Pressure 165/65 H 04/25/23 18:45 Pulse Oximetry 96 04/25/23 18:45 Oxygen Delivery Method Room Air 04/25/23 18:45 Temperature 98.8 F 04/25/23 18:45 Pulse Rate 80 04/25/23 20:01 Respiratory Rate 18 04/25/23 20:01 Blood Pressure 154/72 H 04/25/23 20:01 Pulse Oximetry 94 04/25/23 20:01 Oxygen Delivery Method Room Air 04/25/23 18:45 Discharge Plan Discharge Clinical Impression: Facial laceration Patient Disposition: Home, Self-Care Condition: Improved Instructions: Laceration (DC) Additional Instructions: Tylenol if needed for headache. Suture removal in 5-6 days. Return for signs of infection, severe headache, vomiting, confusion or other acute changes. Your head CT today was normal. Prescriptions: No Action ascorbic acid (vitamin C) 500 mg capsule 500 cap PO DAILY multivitamin Tablet 1 tab PO QAM aspirin 81 mg tablet,delayed release (DR/EC) 81 mg PO QDAY acetaminophen 325 mg capsule 650 mg PO Q6H PRN fluticasone propion-salmeterol 250-50 mcg/dose blister with device 1 inhalation BID potassium chloride 20 mEq tablet,ER particles/crystals 40 meq PO DAILY albuterol 90 mcg/actuation aerosol 2 spray inhalation PRN cholecalciferol (vitamin D3) 125 mcg (5,000 unit) capsule 5,000 unit PO DAILY sertraline 100 mg tablet 100 mg PO QDAY losartan 100 mg tablet 100 mg PO QDAY Patient Comments: TAKE ONE TABLET BY MOUTH ONE TIME DAILY meclizine 25 mg tablet 25 mg PO QDAY PRN benzonatate 200 mg capsule 200 mg PO PRN tramadol 50 mg tablet 50 mg PO Q6-8H PRN alendronate 70 mg tablet 70 mg PO QWEEK Patient Comments: TAKE 1 TABLET BY MOUTH ONCE WEEKLY ON AN EMPTY STOMACH WITH A BIG GLASS OF WATER. DO NOT LIE DOWN FOR 60 MINUTES AFTERWARDS. calcium carbonate 600 mg calcium (1,500 mg) tablet 1,500 mg PO DAILY furosemide 80 mg tablet 80 mg PO DAILY metoprolol succinate 100 mg tablet extended release 24 hr 100 mg PO DAILY Rx Instructions: Take one tablet daily valacyclovir 500 mg tablet 500 mg PO BID PRN cyanocobalamin (vitamin B-12) 1,000 mcg capsule 1,000 mcg PO QDAY Qty: 100 4RF pantoprazole 40 mg tablet,delayed release (DR/EC) 40 mg PO DAILY Qty: 90 3RF Follow Up/Referrals: Shannan Smith MD [Primary Care Provider] - Stand Alone Forms: Recorrido Info Instructions
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
[2023-04-25 19:56] VITALS: BP 169/83; PULSE 83; RESP 18; O2SAT 93
[2023-04-25 19:57] VITALS: PULSE 83; O2SAT 93
[2023-04-25 20:00] VITALS: PULSE 80; O2SAT 93
[2023-04-25 20:01] VITALS: BP 154/72; PULSE 80; RESP 18; O2SAT 94
--- NOTE | 2023-04-25 20:41 | PC.NURSE ---
bacitracin applied to suture repaired lac, patient DC with family, no c/o pain, no further questions about DC instructions. ambulatory.
== END 2023-04-25 20:42 | disposition home or self-care (01) ==
PROVIDERS: Emergency Provider Emergency Medicine; PCP Family Medicine
DX: S01.111A Laceration without foreign body of right eyelid and periocular area, initial encounter (principal); W18.30XA Fall on same level, unspecified, initial encounter
CPT/HCPCS: 12013; 70450; 99283; 99284

== ENCOUNTER 2024-03-09 18:50 | Emergency (ER) | payer MEDICARE, OTHER, SELFPAY ==
[2024-03-09 19:12] VITALS: BP 126/63; PULSE 72; RESP 18; TEMP 36.2; O2SAT 92; BMI 37.8
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
--- NOTE | 2024-03-09 19:38 | CRLHL7_ITS ---
For Patients: As a result of the Century Cures Act, medical imaging exams and procedure reports are released immediately into your electronic medical record. You may view this report before your referring provider. If you have questions, please contact your health care provider. Indication: Fall. Technique: CT of the facial bones performed without intravenous contrast. Comparison: None available. Findings: There is an acute left nasal bone fracture deformity. Acute left orbital floor fracture, with herniation of intraorbital fat and the inferior rectus muscle. The mandible and zygomatic arches appear intact. Pterygoid plates are preserved. Small hemorrhagic fluid level within the left maxillary sinus, related to the orbital fracture. Impression: 1. Acute left orbital floor fracture. Herniation of orbital fat and the inferior rectus muscle through the fracture defect. 2. Acute left nasal bone fracture deformity. Please note that all CT scans at this facility use dose modulation, iterative reconstruction, and/or weight-based dosing when appropriate to reduce radiation dose to as low as reasonably achievable. Dictated by Skyler Cartagena MD @ 03/09/2024 8:07:36 PM (Electronically Signed)
[2024-03-09] MEDS: LIDOCAINE/EPINEP/TETRACAINE 3 ML GEL..ML. TOPICAL (19:58)
--- OUTSIDE RECORDS SUMMARY | 2024-03-09 20:15 | XMS_ITS | Clinical Summary ---
Author Organization [facility] Address [address] [place] [address]. [place] [address] Care Team Providers Care Store Hand Name Role Phone Frw, None Unavailable Unavailable Lilian Baez MD Primary Care Provider Allergies Active Allergy Reactions Criticality Noted Date Comments No Clinical Screening - See Comments Rash Low 08/18/2019 Paper tape Medications Medication Sig Dispensed Refills Start Date End Date Status pantoprazole (PROTONIX) 20 MG EC tablet Take 40 mg by mouth daily Active furosemide (LASIX) 80 MG tablet Take 40 mg by mouth daily Active potassium chloride ER (KLOR-CON M) 20 MEQ CR tablet Take 40 mEq by mouth daily Active BABY ASPIRIN PO Take 81 mg by mouth daily Active acetaminophen (TYLENOL) 325 MG tablet Take 325-650 mg by mouth every 6 hours as needed for mild pain Active albuterol (PROAIR HFA/PROVENTIL HFA/VENTOLIN HFA) 108 (90 Base) MCG/ACT inhaler Inhale 1-2 puffs into the lungs every 4 hours as needed for shortness of breath / dyspnea or wheezing Active alendronate (FOSAMAX) 70 MG tablet Take 70 mg by mouth every 7 days Active albuterol (PROVENTIL) (2.5 MG/3ML) 0.083% neb solution Take 2.5 mg by nebulization every 6 hours as needed for shortness of breath / dyspnea or wheezing Active cholecalciferol (VITAMIN D3) 5000 units (125 mcg) capsule Take 5,000 Units by mouth daily Active metoprolol succinate ER (TOPROL-XL) 100 MG 24 hr tablet Take 100 mg by mouth daily Active Multiple Vitamins-Calcium (ONE-A-DAY WOMENS PO) Take 1 tablet by mouth daily Active valACYclovir (VALTREX) 1000 mg tablet Take 1,000 mg by mouth 2 times daily as needed Active ibuprofen (ADVIL/MOTRIN) 600 MG tabletIndications: Rectocele,Enteroce le,Vaginal vault prolapse Take 1 tablet (600 mg) by mouth every 6 hours as needed for pain (mild) 30 tablet 08/25/2019 Active acetaminophen (TYLENOL) 325 MG tabletIndications: Rectocele,Enteroce le,Vaginal vault prolapse Take 2 tablets (650 mg) by mouth every 6 hours as needed (pain) 100 tablet 08/25/2019 Active oxyCODONE (ROXICODONE) 5 MG tabletIndications: Rectocele,Enteroce le,Vaginal vault prolapse Take 1-2 tablets (5-10 mg) by mouth every 3 hours as needed for pain (Moderate to Severe) 12 tablet 08/25/2019 Active acetaminophen (TYLENOL) 325 MG tabletIndications: Rectocele Take 2 tablets (650 mg) by mouth every 6 hours as needed for mild pain 30 tablet 08/26/2019 Active oxyCODONE (ROXICODONE) 5 MG tabletIndications: Rectocele Take 1 tablet (5 mg) by mouth every 3 hours as needed for moderate to severe pain 7 tablet 08/26/2019 Active docusate sodium (COLACE) 100 MG capsuleIndications :Rectocele Take 1 capsule (100 mg) by mouth 2 times daily STOP FOR LOOSE STOOLS 60 capsule 08/26/2019 Active ibuprofen (ADVIL/MOTRIN) 600 MG tabletIndications: Rectocele Take 1 tablet (600 mg) by mouth every 6 hours as needed for moderate pain 30 tablet 08/26/2019 Active Active Problems Problem Noted Date Diagnosed Date 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?F) 08/26/2019 7:42 AM CS T Respiratory Rate 20 08/26/2019 7:42 AM DIGITAL MARKETING COORDINATOR Oxygen Saturation 92% 08/26/2019 7:42 AM DIGITAL MARKETING COORDINATOR Inhaled Oxygen Concentration - - Weight 121.6 kg (268 lb) 08/25/2019 10:17 AM DIGITAL MARKETING COORDINATOR Height 154.9 cm (5' 1) 08/25/2019 10:17 AM DIGITAL MARKETING COORDINATOR Body Mass Index 50.64 08/25/2019 10:17 AM DIGITAL MARKETING COORDINATOR Plan of Treatment Not on file Advance Directives For more information, please contact: [phone] * Full Code (Latest Code Status on File) Date Activated Date Inactivated Comments 08/26/2019 7:37 AM Question Answer Comments Code status determined by: Discussion with patinatalie nt/legal decision maker * Full Code Date Activated Date Inactivated Comments 08/25/2019 3:55 PM 08/26/2019 7:37 AM Question Answer Comments Code status determined by: Discussion with patie nt/legal decision maker Care Teams Store Hand Relationship Specialty Start Date End Date Frw, None PCP - Ophthalmology 07/29/06 Lilian Baez MD PCP - General Family Practice 08/10/19
--- OUTSIDE RECORDS SUMMARY | 2024-03-09 20:15 | XMS_ITS ---
Author Organization [facility] Address [address] [place] [address] Care Team Providers Care Quirk Sander Name Role Phone Unavailable Unavailable Unavailable Surgery Details Not on file Complications Check Surgery Details section. Procedure Estimated Blood Loss Check Surgery Details section. Procedure Findings Check Surgery Details section. Procedure Specimens Taken Check Surgery Details section.
--- OUTSIDE RECORDS SUMMARY | 2024-03-09 20:15 | XMS_ITS | Patient Health Record ---
Author Organization [facility] Address [address] [place] [address] Care Team Providers Care Classroom Assistant Name Role Phone Dr. Lilian Baez Primary Care Provider Unavail able Allergies Allergen (clinical drug ingredient) Drug/Non Drug Allergy documented on EMR Reaction Allergy Type Onset Date Status Ragweed (uncoded) Unknown Allergy Ac tive Reason For Referral No Information Medications Medication SIG (Take, Route, Frequency, Duration) Notes [...] tabs at bedtime and as needed Active Social History Tobacco Use: Social History Observation Description Date Details (start date - stop date) Former Smoker NA - NA Tobacco Use/Smoking Question Answer Notes Are you a former smoker How long has it been since you last smoked? 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) Active confirmed Problem 461364467 Mixed stress and urge urinary incontinence (N39.46) Active confirmed Plan Of Treatment No Information Insurance Providers Payer Name Payer Address Payer Phone Subscriber Number Group Number Insured Name Patient Relationship to Insured Coverage Start Date Coverage End Date Medicare (InsNate Trent) [address] [facility] DONNIE Rajput [id number] Alicia Lyn Self - patient is the insured [facility] [address] DONNIE Rajput [id number] Alicia Lyn Self - patient is the insured Medical (General) History Medical History History ICD Code morbid obesity [...]
--- OUTSIDE RECORDS SUMMARY | 2024-03-09 20:15 | XMS_ITS | Referral Summary ---
Author Organization [facility] Address [address] [place] [address]. [place] [address] Care Team Providers Care Instrument Mechanic Weapons System Name Role Phone Frw, None Unavailable Unavailable Lilian Baez MD Primary Care Provider [phone] Allergies Active Allergy Reactions Criticality Noted Date [...] Comments Blood Pressure 125/55 08/26/2019 7:42 AM GENERAL REPAIR MECHANIC Pulse 72 08/25/2019 7:17 PM GENERAL REPAIR MECHANIC Temperature 35.5 ??C (95.9 ??F) 08/26/2019 7:42 AM CS T Respiratory Rate 20 08/26/2019 7:42 AM GENERAL REPAIR MECHANIC Oxygen Saturation 92% 08/26/2019 7:42 AM GENERAL REPAIR MECHANIC Inhaled Oxygen Concentration - - Weight 121.6 kg (268 lb) 08/25/2019 10:17 AM GENERAL REPAIR MECHANIC Height 154.9 cm (5' 1) 08/25/2019 10:17 AM GENERAL REPAIR MECHANIC Body Mass Index 50.64 08/25/2019 10:17 AM GENERAL REPAIR MECHANIC Plan of Treatment Not on file Advance Directives For more information, please contact: [phone] * Full Code (Latest Code Status on File) Date Activated Date Inactivated Comments 08/26/2019 7:37 AM Question Answer Comments Code status determined by: Discussion with patinatalie nt/legal decision maker * Full Code Date Activated Date Inactivated Comments 08/25/2019 3:55 PM 08/26/2019 7:37 AM Question Answer Comments Code status determined by: Discussion with patie nt/legal decision maker Care Teams Instrument Mechanic Weapons System Relationship Specialty Start Date End Date Frw, None PCP - Ophthalmology 07/29/06 Lilian Baez MD PCP - General Family Practice 08/10/19
--- OUTSIDE RECORDS SUMMARY | 2024-03-09 20:15 | XMS_ITS | Clinical Summary ---
Author Organization [facility] Address [address] [place] [address] Care Team Providers Care Glassware Engraver Name Role Phone Unavailable Primary Care Provider Unavailabl e Source Comments Patient records contain information from all sites at [facility]. For routine questions regarding patient records, call [phone] during business hours, M-F 8:00 AM - 5:00 PM Central Time. Record requests for emergency care only can be directed to [phone] at any time.[facility] Allergies Active Allergy Reactions Criticality Noted Date Comments Adhesive Rash 04/23/2022 Medications Medication Sig Dispensed Refills Start Date End Date Status acetaminophen (TYLENOL) 325 mg tablet Take 325-650 mg by mouth as needed. 08/25/2019 Active albuterol 90 mcg/actuation inhaler Inhale 1-2 puffs. Active alendronate (FOSAMAX) 70 mg tablet Take 70 mg by mouth. Active cholecalciferol (VITAMIN D3) 125 mcg (5,000 Unit) capsule Take 5,000 Units by mouth daily. Active furosemide (LASIX) 80 mg tablet Take 40 mg by mouth daily. Active metoprolol succinate (TOPROL-XL) 100 mg 24 hr tablet Take 100 mg by mouth daily. Active pantoprazole (PROTONIX) 20 mg EC tablet Take 40 mg by mouth daily. Active potassium chloride (KLOR-CON M/KDUR) 20 mEq ER tablet Take 40 mEq by mouth. Active ascorbic acid, vitamin C, (ascorbic acid with kath hips) 500 mg tablet Take 500 mg by mouth daily. Active aspirin [address] tablet Take 81 mg by mouth daily. Active calcium carbonate 1,500 mg (600 mg calcium) tablet Take 600 mg of calcium by mouth daily with breakfast. Active losartan (COZAAR) 100 mg tablet Take 100 mg by mouth daily. Active sertraline (ZOLOFT) 100 mg tablet Take 100 mg by mouth daily. Active valACYclovir (VALTREX) 500 mg tablet Take 500 mg by mouth as needed. Active primidone (MYSOLINE) 50 mg tablet Take 1 tablet (50 mg total) by mouth at bedtime. 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 Social History Tobacco Use Types Packs/Day Years Used Date Smoking Tobacco: Former Cigarettes Q uit: 1989 Smokeless Tobacco: Never Tobacco Cessation:Counseling Given: Not Answered Nutrition Answer Date Recorded Nutrition: EVOO Fat Source Unknown 03/20 Nutrition: Servings of Fruits/Vegetables per Day Not on file 03/20/2022 Dental Answer Date Recorded Dental: Regular Dentist Unknown 03/20/20 Sex and Gender Information Value Date Recorded Sex Assigned at Not on file Gender Identity Not on file Sexual Orientation Not on file Last Filed Vital Signs Vital Sign Reading Time Taken Comments Blood Pressure 136/85 04/23/2022 8:19 AM CDT Pulse 65 04/23/2022 8:19 AM CDT Temperature - - Respiratory Rate - - Oxygen Saturation - - Inhaled Oxygen Concentration - - Weight 123 kg (270 lb 1 oz) 04/23/2022 8:05 AM C DT Height 158 cm (5' 2.21) 04/23/2022 8:05 AM CDT Body Mass Index 49.07 04/23/2022 8:05 AM CDT Plan of Treatment Health Maintenance Due Date Last Done Comments Bone Density Scan (Osteoporo sis Screen) 1953 CT Colonography 1955 Cologuard 1955 Colonoscopy 1955 Colorectal Cancer Screening 1955 Creatinine Level (Kidney Fun ction Test) 1953 FIT 1953 Fasting Glucose for Diabetes Screening 1955 Hepatitis C Screening 1955 Mammogram 1955 Potassium Level 1953 Sodium Level 1953 Depression Screening (Annual PHQ-2) 06/22/2023 Fall Risk Screen (Annual) 06/22/2023 COVID-19 Vaccine (2022-2 4 season) 2024 04/03/2023, 05/30/2022, 10/15/2021, Additional history exists Influenza Vaccine (#1) 2024 3, 05/30/2022, 04/01/2021, Additional history exists DTaP,Tdap,and Td Vaccines (2 - Td or Tdap) 04/12/2024 04/12/2014, 02/29/2004 Zoster Vaccines Completed 06/01/2019, 12/2018, 03/19/2012 Pneumococcal vaccine (65+ years) Completed 05/07/20, 03/28/2019
--- OUTSIDE RECORDS SUMMARY | 2024-03-09 20:15 | XMS_ITS | Referral Summary ---
Author Organization [facility] Address [address] [place] [address] Care Team Providers Care Tariff Inspector Name Role Phone Unavailable Primary Care Provider Unavailabl e Source Comments Patient records contain information from all sites at [facility]. For routine questions regarding patient records, call [phone] during business hours, M-F 8:00 AM - 5:00 PM Central Time. Record requests for emergency care only can be directed to [phone] at any time.[facility] Allergies Active Allergy Reactions Criticality Noted Date [...] 04/23/2022 8:05 AM CDT Plan of Treatment Not on file
--- NOTE | 2024-03-09 21:24 | ED.NURSE ---
Bacitracin applied to bridge of nose and other abrasion above left eye brow.
[2024-03-09] MEDS: AMOXICILLIN/CLAVULANATE 875 mg/125 mg TABLET PO (21:34)
[2024-03-09] MEDS: TETANUS/DIPHTH/PERTUSSIS 0.5 ML SYRINGE IM (21:36)
== END 2024-03-09 21:39 | disposition home or self-care (01) ==
PROVIDERS: Emergency Provider Family Medicine; PCP Family Medicine
DX: S02.32XA Fracture of orbital floor, left side, initial encounter for closed fracture (principal); S01.21XA Laceration without foreign body of nose, initial encounter; W01.0XXA Fall on same level from slipping, tripping and stumbling without subsequent striking against object, initial encounter; Z23 Encounter for immunization
CPT/HCPCS: 12011; 70486; 90471; 90715; 99284; A9270

== ENCOUNTER 2025-06-05 18:15 | Emergency (ER) | payer MEDICARE, OTHER, SELFPAY ==
--- OUTSIDE RECORDS SUMMARY | 2025-06-05 18:18 | XMS_ITS | Clinical Summary ---
Author Organization [facility] Address [address] [place] [address]. [place] [address] Care Team Providers Care Band Reamer Machine Operator Name Role Phone Frw, None Unavailable Unavailable Lilian Baez MD Primary Care Provider [phone] Marci Slaughter MD Unavailable [phone] Marci Slaughter MD Unavailable [phone] Allergies Active AllergyReactionsCriticalityNoted DateCommentsNo Clinical Screening - Other JiknxsiDkqqQyv25/27/2020 Paper tape Medications MedicationSigDispense QuantityRefillsLast FilledStart DateEnd DateStatus pantoprazole (PROTONIX) 20 MG EC tablet Take 40 mg by mouth dailyActive furosemide (LASIX) 80 MG tablet Take 40 mg by mouth dailyActive potassium chloride ER (KLOR-CON M) 20 MEQ CR tablet Take 40 mEq by mouth dailyActive BABY ASPIRIN PO Take 81 mg by mouth dailyActive acetaminophen (TYLENOL) 325 MG tablet Take 325-650 mg by mouth every 6 hours as needed for mild painActive albuterol (PROAIR HFA/PROVENTIL HFA/VENTOLIN HFA) 108 (90 Base) MCG/ACT inhaler Inhale 1-2 puffs into the lungs every 4 hours as needed for shortness of breath / dyspnea or wheezingActive alendronate (FOSAMAX) 70 MG tablet Take 70 mg by mouth every 7 daysActive albuterol (PROVENTIL) (2.5 MG/3ML) 0.083% neb solution Take 2.5 mg by nebulization every 6 hours as needed for shortness of breath / dyspnea or wheezingActive cholecalciferol (VITAMIN D3) 5000 units (125 mcg) capsule Take 5,000 Units by mouth dailyActive metoprolol succinate ER (TOPROL-XL) 100 MG 24 hr tablet Take 100 mg by mouth dailyActive Multiple Vitamins-Calcium (ONE-A-DAY WOMENS PO) Take 1 tablet by mouth dailyActive valACYclovir (VALTREX) 1000 mg tablet Take 1,000 mg by mouth 2 times daily as neededActive ibuprofen (ADVIL/MOTRIN) 600 MG tablet Indications:Rectocele,Enterocele,Vaginal vault prolapseTake 1 tablet (600 mg) by mouth every 6 hours as needed for pain (mild) 30 tablet 08/25/2019Active acetaminophen (TYLENOL) 325 MG tablet Indications:Rectocele,Enterocele,Vaginal vault prolapseTake 2 tablets (650 mg) by mouth every 6 hours as needed (pain) 100 tablet 08/25/2019Active oxyCODONE (ROXICODONE) 5 MG tablet Indications:Rectocele,Enterocele,Vaginal vault prolapseTake 1-2 tablets (5-10 mg) by mouth every 3 hours as needed for pain (Moderate to Severe) 12 tablet 08/25/2019Active acetaminophen (TYLENOL) 325 MG tablet Indications:RectoceleTake 2 tablets (650 mg) by mouth every 6 hours as needed for mild pain 30 tablet 08/26/2019Active oxyCODONE (ROXICODONE) 5 MG tablet Indications:RectoceleTake 1 tablet (5 mg) by mouth every 3 hours as needed for moderate to severe pain 7 tablet 08/26/2019Active docusate sodium (COLACE) 100 MG capsule Indications:RectoceleTake 1 capsule (100 mg) by mouth 2 times daily STOP FOR LOOSE STOOLS 60 capsule 08/26/2019Active ibuprofen (ADVIL/MOTRIN) 600 MG tablet Indications:RectoceleTake 1 tablet (600 mg) by mouth every 6 hours as needed for moderate pain 30 tablet 08/26/2019Active Active Problems ProblemNoted DateDiagnosed IbubCnxdrrpwt78/05/3349Cowwjbxrao45/05/2020Vaginal vault lruhcovn39/05/2020 Family History Medical HistoryRelationCommentsGlaucomaNo family hx ofMacular DegenerationNo family hx of Social History Tobacco UseTypesPacks/DayYears UsedDateSmoking Tobacco: FormerSmokeless Tobacco: Never Comments:quit 30 years ago Alcohol UseStandard Drinks/WeekCommentsYes0 (1 standard drink = 0.6 oz pure alcohol)1 glass wine 2/monthPHQ-2AnswerDate RecordedPHQ-2 Cjguc068 CommentsNoSex and Gender InformationValueDate RecordedSex Assigned at BirthNot on fileLegal VjuOtyqsv11/04/2012 4:16 AM CSTGender IdentityNot on file Sexual OrientationNot on file Last Filed Vital Signs Vital SignReadingTime TakenCommentsBlood Bwdayyyt302/55008/26/2019 7:42 AM PODIATRIST Vkbaj1175/05/2020 7:17 PM IXTNvgzgxvpoic19.5 ??C (95.9 ??F)08/26/2019 7:42 AM CSTRespiratory Ezqs043108/26/2019 7:42 AM CSTOxygen Kbvoomkxup53%08/26/2019 7:42 AM CSTInhaled Oxygen Concentration--Alpsik390.6 kg (268 lb)08/25/2019 10:17 AM ALBIgzxyn277.9 cm (5' 1)08/25/2019 10:17 AM CSTBody Mass Index50.64008/25/2019 10:17 AM PODIATRIST Plan of Treatment Health MaintenanceDue DateLast DoneCommentsADVANCE CARE TMYPIZVU92/20/1954NNUAL REVIEW OF HM FQESSH994CT GGDPKHXPCGGO84/20/2274GVCU26/20/1954DIABETES XEVPUPVJI52/20/0083GYN55 1953FLEX SIG1953MAMMO EUBUYMQFI82/20/1954sDNA (Cologuard)1955 0532SGTWMFXKIQL00/20/1964COLORECTAL CANCER CXYAXNVZT62/20/1964 HEPATITIS C VVVIZRJDH36/20/8582JYOBE92/20/1994LUNG CANCER MWNQZLOAJ47/20/2004 MEDICARE ANNUAL WELLNESS VISIT2018COVID-19 VACCINE ( season) , 04/03/2023, 05/30/2022, Additional history existsINFLUENZA VACCINE (#1), 04/03/2023, 05/30/2022, Additional history existsFALL RISK FLQNUMIUUC61RSV VACCINE (1 - 1-dose 75+ series)2028DTAP/TDAP/TD VACCINE (3 - Td or Tdap), 04/12/2014, 02/29/2004ZOSTER WTHVZPCIojxgjmwx78/11/2019, 03/28/2019, 03/19/2012 PNEUMOCOCCAL VACCINE 50+ EQYLWIubjqguvf72/16/2020, 03/28/2019PHQ-2 (once per calendar year)Bbwtyzwmq53/29/2025HPV VACCINE (No Doses Required)Completed MENINGITIS VACCINEAged OutNo longer eligible based on patient's age to complete this topic Insurance * Guarantor: ALICIA OLIVARESAccount TypeRelation to PatientDate of PhoneBilling AddressPersonal/Family [address] [place] [phone] * Guarantor: Alicia Olivares AAccount TypeRelation to PatientDate of PhoneBilling AddressPersonal/McdemfZqmj53/[birth year][id number] [place] [phone] Advance Directives For more information, please contact: [phone] * Full Code (Latest Code Status on File) Date ActivatedDate InactivatedComments08/26/2019 7:37 AMQuestionAnswerCommentsCode status determined by:* Discussion with patient/legal decision maker * Full Code Date ActivatedDate InactivatedComments08/25/2019 3:55 PM08/26/2019 7:37 AMQuestion AnswerCommentsCode status determined by:* Discussion with patient/legal decision maker Care Teams Team MemberRelationshipSpecialtyStart DateEnd Date Frw, None PCP - Ophthalmology07/29/06 Lilian Baez MD [facility]/19 Marci Slaughter MD [address] [place] [address] MDOphthalmology10/06/24 Marci Slaughter MD [address] [place] [address] [phone] Assigned Surgical Provider11/11/24
--- OUTSIDE RECORDS SUMMARY | 2025-06-05 18:18 | XMS_ITS | Patient Health Record ---
Author Organization [facility] Address [address] [place] [address] Care Team Providers Care Gear Tooth Grinding Machine Operator Name Role Phone Dr. Lilian Baez Primary Care Provider Unavail able Allergies Allergen (clinical drug ingredient) Drug/Non Drug Allergy documented on EMR Reaction Allergy Type Onset Date Status Ragweed (uncoded)UnknownAllergyActive Reason For Referral No Information Medications Medication SIG (Take, Route, Frequency, Duration) Notes Start Date End Date Status Calcium Carbonate 600mg takes 2 tabs dailyActiveAlendronate Sodium 70 MG1 tablet 30 minutes before the first food, beverage or medicine of the day with plain water Orally; Duration: 30 day(s)once weeklyActiveMulti-VitaminsdailyActivePantoprazole Sodium once dailyActivevalACYclovir HClas needed for cold soresActiveAlbuterolinhaler as needed-very seldomActivePotassium Chloride1 tab twice dailyActiveMetoprolol Succinate ER 100 MG1 tablet Orally Once a day; Duration: 30 day(s)takes in the yeRjukbrKtfyihh83nl cmkvwJvagzvWdfivrqujheqpio1705 IU takes 4 capsules daily ActiveMeclizine HClas lbejbgXlcyoeLgjnmtzcie76nh daily at bedtimeActive Acetaminophen2 tabs at bedtime and as neededActive Social History Tobacco Use: Social History Observation Description Date Details (start date - stop date) Former Smoker NA - NA Tobacco Use/Smoking Question Answer Notes Are you a former smoker How long has it been since you last smoked?1-5 years Problems Problem Type SNOMED Code ICD Code Onset Dates Problem Status W/U Status Risk Notes Problem Overactive bladder (158807516) Overactive bladder (N32.81) ActiveconfirmedProblemHerniation of rectum into vagina (060946205)Rectocele (N81.6)ActiveconfirmedProblemVaginal vault prolapse (037607679)Vaginal vault prolapse (N81.9)ActiveconfirmedProblemMixed incontinence (532786450)Mixed stress and urge urinary incontinence (N39.46)Activeconfirmed Plan Of Treatment No Information Insurance Providers Payer Name Payer Address Payer Phone Subscriber Number Group Number Insured Name Patient Relationship to Insured Coverage Start Date Coverage End Date Medicare (Ins. Bill) [address] [place], [place] [id number], Monielf - [facility] [address] [place], [place] [id number], VanesahSelf - patient is the insured Medical (General) History Medical History History ICD Code morbid obesity seasonal allergiespossible asthmaGERDhypertensionmigrainesobstructive sleep apena on CPAPpre-diabeteshistory of vitamin-D deficiencyhistory of C2 cervcial spine fracture from accident in 2006osteoporosis per patient reportvaginal vault prolaspeSurgical History Surgery Date(Month/Year) wisdom teeth removal unsure [...]
[2025-06-05 18:31] VITALS: BP 153/68; PULSE 90; RESP 32; TEMP 38.1; O2SAT 91; BMI 50.1
--- NOTE | 2025-06-05 19:08 | ED.GENADULT ---
HPI - General Adult General Chief complaint: Cough Stated complaint: A cold Time Seen by Provider: 06/05/25 19:08 History of Present Illness HPI narrative: having a barking and productive cough and congestion, wheezing. Symptoms started Thursday but have really gotten out of hand today. 69-year-old woman presenting to the emergency department with concern cough and congestion. Wheezing. Has been treating with DayQuil and NyQuil. Coughing more when she goes flat size so as been sleeping little elevated. And now she lost her voice. Sick over the last 3 days or so. As jags of coughing. Gets lightheaded. Uses CPAP with sleep apnea. Probably has COPD she says. No longer smokes. History of reactive airway of some sort but has long since tossed the nebulizer. Revealed little later the daughter, who accompanies her here, was recently positive for influenza type A Related Data Home Medications ?Medication ?Instructions ?Recorded ?Confirmed acetaminophen 325 mg capsule 650 mg PO Q6H PRN 03/12/22 03/16/24 albuterol 90 mcg/actuation aerosol 2 spray inhalation PRN 03/12/22 03/16/24 inhaler ascorbic acid (vitamin C) 500 mg 500 cap PO DAILY 03/12/22 03/16/24 capsule aspirin 81 mg tablet,delayed 81 mg PO QDAY 03/12/22 03/16/24 release benzonatate 200 mg capsule 200 mg PO PRN 03/12/22 03/16/24 cholecalciferol (vitamin D3) 125 5,000 unit PO DAILY 03/12/22 03/16/24 mcg (5,000 unit) capsule fluticasone 250 mcg-salmeterol 50 1 inhalation BID 03/12/22 03/16/24 mcg/dose blistr powdr for inhalation losartan 100 mg tablet 100 mg PO QDAY 03/12/22 03/16/24 meclizine 25 mg tablet 25 mg PO QDAY PRN 03/12/22 03/16/24 multivitamin 1 tab PO QAM 03/12/22 03/16/24 potassium chloride 20 mEq 40 meq PO DAILY 03/12/22 03/16/24 tablet,extended release(part/cryst) sertraline 100 mg tablet 100 mg PO QDAY 03/12/22 03/16/24 tramadol 50 mg tablet 50 mg PO Q6-8H PRN 03/12/22 03/16/24 alendronate 70 mg tablet 70 mg PO QWEEK 03/18/22 03/16/24 calcium carbonate 1,500 mg PO DAILY 03/18/22 03/16/24 furosemide 80 mg tablet 80 mg PO DAILY 03/18/22 03/16/24 metoprolol succinate 100 mg 100 mg PO DAILY 03/18/22 03/16/24 tablet,extended release 24 hr valacyclovir 500 mg tablet 500 mg PO BID PRN 03/18/22 03/16/24 Previous Rx's ?Medication ?Instructions ?Recorded cyanocobalamin (vitamin B-12) 1,000 mcg PO QDAY #100 caps 03/19/22 1,000 mcg capsule pantoprazole 40 mg tablet,delayed 40 mg PO DAILY #90 tabs 04/04/22 release amoxicillin 875 mg-potassium 1 tab PO BID #10 tabs 03/09/24 clavulanate 125 mg tablet benzonatate 100 mg capsule 100 - 200 mg (1 - 2 x 100 mg) PO 06/05/25 TID PRN cough #30 caps Allergies Allergy/AdvReac Type Severity Reaction Status Date / Time ragweed pollen Allergy Unknown watery Verified 03/16/24 09:05 eyes, sneezing, headache Adhesives Allergy Unknown Rash Uncoded 03/16/24 09:05 Review of Systems Status of ROS: Reports: 6 or more systems reviewed and unremarkable except as noted in History and below [facility] Medical History Anxiety ?F41.9 - Anxiety disorder, unspecified (ICD-10) Mild depression ?F32.A - Depression, unspecified (ICD-10) Allergic rhinitis ?J30.9 - Allergic rhinitis, unspecified (ICD-10) Low vitamin B12 level ?E53.8 - Deficiency of other specified B group vitamins (ICD-10) Mobility poor ?Z74.09 - Other reduced mobility (ICD-10) Leg edema ?R60.0 - Localized edema (ICD-10) Obstructive sleep apnea treated with continuous positive airway pressure (CPAP) (~2014) ?G47.33 - Obstructive sleep apnea (adult) (pediatric) (ICD-10) ?Z99.89 - Dependence on other enabling machines and devices (ICD-10) Vitamin D insufficiency (2017) ?E55.9 - Vitamin D deficiency, unspecified (ICD-10) Recurrent herpes labialis ?B00.1 - Herpesviral vesicular dermatitis (ICD-10) Prediabetes (2015) ?R73.03 - Prediabetes (ICD-10) Morbid obesity ?E66.01 - Morbid (severe) obesity due to excess calories (ICD-10) Migraine headache ?G43.909 - Migraine, unspecified, not intractable, without status migrainosus (ICD-10) Hypokalemia (2011) ?E87.6 - Hypokalemia (ICD-10) Hypertension ?I10 - Essential (primary) hypertension (ICD-10) History of asthma ?Z87.09 - Personal history of other diseases of the respiratory system (ICD-10) Gastroesophageal reflux disease ?K21.9 - Gastro-esophageal reflux disease without esophagitis (ICD-10) C2 cervical fracture (2006) ?S12.100A - Unspecified displaced fracture of second cervical vertebra, initial encounter for closed fracture (ICD-10) Surgical History History of exploratory laparotomy (2006) ?Z98.890 - Other specified postprocedural states (ICD-10) History of prolapse of bladder ?Z87.448 - Personal history of other diseases of urinary system (ICD-10) History of brain surgery (~2006) ?Z98.890 - Other specified postprocedural states (ICD-10) History of incisional hernia repair (07/06/12) ?Z98.890 - Other specified postprocedural states (ICD-10) ?Z87.19 - Personal history of other diseases of the digestive system (ICD-10) Status post laparoscopic cholecystectomy (10/03/11) ?Z90.49 - Acquired absence of other specified parts of digestive tract (ICD-10) S/P total knee arthroplasty (~2004) ?Z96.659 - Presence of unspecified artificial knee joint (ICD-10) History of total hysterectomy with bilateral salpingo-oophorectomy (BSO) (1985) ?Z90.710 - Acquired absence of both cervix and uterus (ICD-10) ?Z90.722 - Acquired absence of ovaries, bilateral (ICD-10) ?Z90.79 - Acquired absence of other genital organ(s) (ICD-10) History of breast biopsy (05/16/09) ?Z98.890 - Other specified postprocedural states (ICD-10) Family History Mother Stroke, Onset Age: 82 Myocardial infarction, Onset Age: 81 High cholesterol Colon cancer, Onset Age: 82 Father Stroke, Onset Age: 60 High blood pressure COPD (chronic obstructive pulmonary disease) Melanoma Maternal Grandmother Colon cancer, Onset Age: 40 Other No family history of breast cancer No family history of ovarian cancer Social History Narrative: , 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 Appears tired. Laryngitic and congested. Some trace wheeze in the anterior chest. A little tremulous. Oropharynx erythematous consistent with frequent coughing. Skin is rather warm. No rashes appreciated. Well-perfused. Heart in elevated rate regular rhythm. Const: Vital Signs, click to edit/add: Vital Signs - 24 hr 06/05/25 18:31 Temperature 100.5 F H Pulse Rate [Pulse Oximeter] 90 Respiratory Rate 32 H Blood Pressure [Ri ght Upper Arm] 153/68 H Pulse Oximetry 91 Oxygen Delivery Me thod Room Air Documenting provider has reviewed patient's vital signs: yes Course Vital Signs Vital signs: Initial Vital Signs Temperature 100.5 F H 06/05/25 18:31 Temperature Source Temporal Artery Scan 06/05/25 18:31 Pulse Rate 90 06/05/25 18:31 Respiratory Rate 32 H 06/05/25 18:31 Blood Pressure 153/68 H 06/05/25 18:31 Blood Pressure Mean 96 06/05/25 18:31 Blood Pressure Position Sitting 06/05/25 18:31 Pulse Oximetry 91 06/05/25 18:31 Oxygen Delivery Method Room Air 06/05/25 18:31 Vital Signs Temperature 100.5 F H 06/05/25 18:31 Pulse Rate 90 06/05/25 18:31 Respiratory Rate 32 H 06/05/25 18:31 Blood Pressure 153/68 H 06/05/25 18:31 Pulse Oximetry 91 06/05/25 18:31 Oxygen Delivery Method Room Air 06/05/25 18:31 Temperature 100.5 F H 06/05/25 18:31 Pulse Rate 88 06/05/25 21:00 Respiratory Rate 22 06/05/25 21:00 Blood Pressure 153/68 H 06/05/25 18:31 Pulse Oximetry 92 06/05/25 21:00 Oxygen Delivery Method Room Air 06/05/25 18:31 Medications Administered Medications: Discontinued Medications Generic Name Dose Route Start Last Admin Trade Name Freq PRN Reason Stop Dose Admin Albuterol/Ipratropium 1 neb 06/05/25 19:40 06/05/25 20:04 Iprat-Albut 0.5-2.5 Mg/3 Ml Neb IH 06/05/25 19:41 1 neb ONCE ONE Administration Benzonatate 200 mg 06/05/25 21:11 06/05/25 21:29 Benzonatate 100 Mg Capsule PO 06/05/25 21:12 200 mg ONCE ONE Administration Medical Decision Making MDM Narrative Medical decision making narrative: I suspect given community prevalence and exposure that has influenza. Appears to have some reactive airway and might benefit from a nebulization. I think though the coughing is also complicated by postnasal drip which is also exacerbating laryngitis. With persistent or escalating symptoms I think would benefit though from a chest x-ray looking for potential pneumonia. Monitor oximetry. I think this is infectious/inflammatory and not cardiac in origin. Ordered for DuoNeb. This does help the wheeze. Improved respiration rate. Also given benzonatate. Chest x-ray independently reviewed by me with maybe some perihilar fullness. ADDENDUM INDICATION: Fever. Cough. COMPARISON: No recent prior comparison study. Comparison is made with an exam dated 10/01/2011. TECHNIQUE: PA and lateral views of the chest. (3 images. FINDINGS: Medical Devices: None. Lung Volumes: Adequate inspiration. No significant atelectasis. Lungs: No focal opacity. Pleura and Pleural spaces: No significant pleural effusion. No pneumothorax. Mediastinum: AP technique exaggerates the transverse dimension of the cardiac silhouette. Borderline/mild cardiomegaly is not excluded. Bony Thorax and Soft Tissues: No significant incidental findings. IMPRESSION: No findings to explain the clinical history. Incidental findings described in the body of the report. Dictated by Agustin Watters MD @ 06/05/2025 8:21:43 PM ----- ADDENDUM ----- ADDENDUM: Please note the following correction to the body of the report: Mediastinum: Low lung volumes exaggerate the transverse dimension of the cardiac silhouette. Borderline/mild cardiomegaly is not excluded. Dictated by Agustin Watters MD @ Jun 05 2025 8:22PM (Electronically Signed) For Patients: As a result of the Cures Act, medical imaging exams and procedure reports are released immediately into your electronic medical record. You may view this report before your referring provider. If you have questions, please contact your health care provider. INDICATION: Fever. Cough. COMPARISON: No recent prior comparison study. Comparison is made with an exam dated 10/01/2011. TECHNIQUE: PA and lateral views of the chest. (3 images. FINDINGS: Medical Devices: None. Lung Volumes: Adequate inspiration. No significant atelectasis. Lungs: No focal opacity. Pleura and Pleural spaces: No significant pleural effusion. No pneumothorax. Mediastinum: AP technique exaggerates the transverse dimension of the cardiac silhouette. Borderline/mild cardiomegaly is not excluded. Bony Thorax and Soft Tissues: No significant incidental findings. IMPRESSION: No findings to explain the clinical history. Incidental findings described in the body of the report. Dictated by Agustin Watters MD @ 06/05/2025 8:21:43 PM Duration of illness is nearly excluding from Tamiflu; but given comorbidities might still benefit. Overall improved during time in the ER. See patient discharge plan for further discussion <del>Driving</del> prescribing prednisone from [facility] for your hoarse voice and some of the wheezing heard in your chest. Also Tamiflu from [facility]. Pseudoephedrine can be very helpful for decongestion and drying and might help you with your cough. Sending in a prescription of Lindsey Mooney as requested to your pharmacy. You received a dose here as well. Can use your albuterol inhaler for wheeze Can take 600 mg of ibuprofen or 650 mg of acetaminophen per dose. Keep your fever down and I think you will feel better. Stay well hydrated with water. Sleep under the mist of a cool mist humidifier. Menthol vapors might be helpful... Sounds like they were earlier. Sucking on ice chips might help with the cough or the [place] ice that you had mentioned. Be seen for persistent and increasing shortness of breath, inability to control fever, decreasing energy. Medical Records Medical records reviewed: Yes I reviewed the patient's medical records Lab Data Lab results reviewed: Yes I reviewed the patient's lab results Labs: Lab Results 06/05/25 Range/Units 18:35 SARS-CoV-2 (PCR) Negative SARS-CoV-2 (Negative) Influenza Type A (PCR) POSITIVE PCR FLU A A (Negative) Influenza Type B (PCR) Negative PCR FLU B (Negative) RSV (PCR) Negative PCR RSV (Negative) Discharge Plan Discharge Clinical Impression: Influenza A, Cough, Reactive airway disease, Laryngitis Patient Disposition: Home w/ Parent or Adult Condition: Stable Additional Instructions: <del>Driving</del> prescribing prednisone from [facility] for your hoarse voice and some of the wheezing heard in your chest. Also Tamiflu from [facility]. Pseudoephedrine can be very helpful for decongestion and drying and might help you with your cough. Sending in a prescription of Lindsey Mooney as requested to your pharmacy. You received a dose here as well. Can use your albuterol inhaler for wheeze Can take 600 mg of ibuprofen or 650 mg of acetaminophen per dose. Keep your fever down and I think you will feel better. Stay well hydrated with water. Sleep under the mist of a cool mist humidifier. Menthol vapors might be helpful... Sounds like they were earlier. Sucking on ice chips might help with the cough or the [place] ice that you had mentioned. Be seen for persistent and increasing shortness of breath, inability to control fever, decreasing energy. Prescriptions: New benzonatate 100 mg capsule 100 - 200 mg PO TID PRN (Reason: cough) Qty: 30 1RF No Action ascorbic acid (vitamin C) 500 mg capsule 500 cap PO DAILY multivitamin Tablet 1 tab PO QAM aspirin 81 mg tablet,delayed release (DR/EC) 81 mg PO QDAY acetaminophen 325 mg capsule 650 mg PO Q6H PRN fluticasone propion-salmeterol 250-50 mcg/dose blister with device 1 inhalation BID potassium chloride 20 mEq tablet,ER particles/crystals 40 meq PO DAILY albuterol 90 mcg/actuation aerosol 2 spray inhalation PRN cholecalciferol (vitamin D3) 125 mcg (5,000 unit) capsule 5,000 unit PO DAILY sertraline 100 mg tablet 100 mg PO QDAY losartan 100 mg tablet 100 mg PO QDAY Patient Comments: TAKE ONE TABLET BY MOUTH ONE TIME DAILY meclizine 25 mg tablet 25 mg PO QDAY PRN benzonatate 200 mg capsule 200 mg PO PRN tramadol 50 mg tablet 50 mg PO Q6-8H PRN alendronate 70 mg tablet 70 mg PO QWEEK Patient Comments: TAKE 1 TABLET BY MOUTH ONCE WEEKLY ON AN EMPTY STOMACH WITH A BIG GLASS OF WATER. DO NOT LIE DOWN FOR 60 MINUTES AFTERWARDS. calcium carbonate 600 mg calcium (1,500 mg) tablet 1,500 mg PO DAILY furosemide 80 mg tablet 80 mg PO DAILY metoprolol succinate 100 mg tablet extended release 24 hr 100 mg PO DAILY Rx Instructions: Take one tablet daily valacyclovir 500 mg tablet 500 mg PO BID PRN amoxicillin-pot clavulanate 875-125 mg tablet 1 tab PO BID Qty: 10 0RF cyanocobalamin (vitamin B-12) 1,000 mcg capsule 1,000 mcg PO QDAY Qty: 100 4RF pantoprazole 40 mg tablet,delayed release (DR/EC) 40 mg PO DAILY Qty: 90 3RF Follow Up/Referrals: Provider,Not a Local [Primary Care Provider, Family Practice] Stand Alone Forms: [employer] Info Instructions
--- NOTE | 2025-06-05 19:27 | CRLHL7_ITS ---
For Patients: As a result of the Cures Act, medical imaging exams and procedure reports are released immediately into your electronic medical record. You may view this report before your referring provider. If you have questions, please contact your health care provider. INDICATION: Fever. Cough. COMPARISON: No recent prior comparison study. Comparison is made with an exam dated 10/01/2011. TECHNIQUE: PA and lateral views of the chest. (3 images. FINDINGS: Medical Devices: None. Lung Volumes: Adequate inspiration. No significant atelectasis. Lungs: No focal opacity. Pleura and Pleural spaces: No significant pleural effusion. No pneumothorax. Mediastinum: AP technique exaggerates the transverse dimension of the cardiac silhouette. Borderline/mild cardiomegaly is not excluded. Bony Thorax and Soft Tissues: No significant incidental findings. IMPRESSION: No findings to explain the clinical history. Incidental findings described in the body of the report. Dictated by Agustin Watters MD @ 06/05/2025 8:21:43 PM (Electronically Signed)
[2025-06-05 19:39] LABS: PCR FLU A POSITIVE PCR FLU A (Negative); PCR FLU B Negative PCR FLU B (Negative); PCR RSV Negative PCR RSV (Negative); SARS PCR* Negative SARS-CoV-2 (Negative)
[2025-06-05] MEDS: IPRAT-ALBUT 0.5-2.5 MG/3 ML NEB 1 NEB IH (20:04)
[2025-06-05 20:16] VITALS: O2SAT 90
[2025-06-05 20:17] VITALS: O2SAT 94
[2025-06-05 21:00] VITALS: PULSE 88; RESP 22; O2SAT 92
[2025-06-05] MEDS: BENZONATATE 100 MG CAPSULE 200 MG PO (21:29)
== END 2025-06-05 21:41 | disposition home or self-care (01) ==
PROVIDERS: Emergency Provider Family Medicine
DX: J10.1 Influenza due to other identified influenza virus with other respiratory manifestations (principal); J45.909 Unspecified asthma, uncomplicated; J04.0 Acute laryngitis; Z87.891 Personal history of nicotine dependence
CPT/HCPCS: 71046; 87631; 94640; 94761; 99284; A9270